=== PATIENT | female | born 1990 | race Caucasian/White ===

== ENCOUNTER 2016-05-09 05:47 | Emergency (ER) | payer OTHER ==
[~2016-05-09] VITALS: Ht 154.9 cm; Wt 107.0 kg
[~2016-05-09 05:47] MED LIST: ABILIFY15 MG PO; ADVAIR 100/501 DISK IH; ADVAIR 500/501 DISK IH; ALAVERT10 MG PO; ALBUTEROL SULF8.5 GM IH; AMLODIPINE BESYL5 MG PO; ANTIVERT25 MG PO; AVIANE1 EACH PO; AZITHROMYCIN250 MG PO; BENTYL10 MG PO; BENZONATATE100 MG PO; CARVEDILOL3.125 MG PO; CATAPRES0.1 MG PO; CEFDINIR300 MG PO; CHLORTHALIDONE25 MG PO; CIPRO500 MG PO; COREG12.5 M1 PO; COREG25 M1 PO; COREG3.125 M1 PO; COREG6.25 M1 PO; DEPAKOTE250 MG PO; DUONEB 2.5-0.5 M3 ML AEROSOL; FANAPT6 MG PO; GABAPENTIN100 MG PO; GABAPENTIN300 MG PO; GLUCOPHAGE500 MG PO; HYDROCHLOROTHIA25 MG PO; HYDROCODON-ACE1 EAC7 PO; KEFLEX500 MG PO; LIDOCAINE HCL35 GM TP; LISINOPRIL-HCT1 EAC3 PO; LISINOPRIL40 MG PO; LO-DOSE ASPIRIN81 M2 PO; MECLIZINE HCL25 MG PO; MELATIN3 MG PO; MELATONIN10 M4 SL; METFORMIN HCL500 MG PO; MOBIC15 MG PO; MONTELUKAST SOD10 MG PO; MORPHINE SULFAT15 M1 PO; NAPROSYN375 MG PO; NAPROSYN500 MG PO; NITROSTAT0.4 MG SL; NORA-BE0.35 MG PO; OXYCODONE HCL10 MG PO; PEPCID40 MG PO; PERCOCET 5/31 TABLET PO; PERIDEX1 ML MM; PRAVASTATIN SOD40 MG PO; PREDNISONE50 MG PO; PRILOSEC OTC20 MG PO; PRINIVIL10 MG PO; PROMETHAZINE HC25 M1 PO; PROVENTIL17 GM IH; PROVENTIL2.5 MG/3 M IH; PULMICORT IH; PYRIDIUM200 MG PO; SAPHRIS5 MG SL; SERTRALINE HCL100 MG PO; SERTRALINE HCL50 MG PO; SINGULAIR10 MG PO; TEMAZEPAM15 MG PO; TOPAMAX100 MG PO; TOPIRAMATE100 MG PO; ULTRAM50 MG PO; VALIUM5 MG PO; VENTOLIN HFA18 GM IH; VENTOLIN17 GM IH; VICODIN,LORT1 TABLET PO; VISTARIL25 M1 PO; VOLTAREN 1% GE100 GM TP; XANAX0.5 MG PO; XANAX1 MG PO; ZESTORETIC 20-1 EAC1 PO; ZOFRAN ODT4 MG PO; ZOFRAN4 MG PO; ZOLOFT100 MG PO
[2016-05-09 06:15] LABS: HEMATOCRIT 44.6 % (36.0-46.0); MCH 29.4 PG (29.0-34.0); MCHC 33.2 G/DL (30.0-36.0); MCV 88.7 FL (83-99); MEAN PLAT.VOLUME 9.8 uM^3 (9.5-12.4); PLATELET COUNT 320 K/uL (156-360); RBC DIS.WIDTH-CV 12.4 % (11.8-14.6); RBC DIS.WIDTH-SD 39.4 % (39-53); RED BLOOD COUNT 5.03 M/uL (3.80-5.20); WHITE BLOOD COUNT 13.3 K/uL (4.1-10.2)
[2016-05-09 06:26] LABS: CHLORIDE 98 mEq/L (99-109); POTASSIUM 3.7 mEq/L (3.7-5.4); SODIUM 135 mEq/L (136-147)
[2016-05-09 06:28] LABS: GLUCOSE 303 mg/dL (70-99)
[2016-05-09 06:29] LABS: ANION GAP 13 MEQ/L (2-14)
[2016-05-09 06:30] LABS: TOTAL BILIRUBIN 0.4 mg/dL (0.0-1.0)
[2016-05-09 06:31] LABS: ALKALINE PHOSPHATASE 112 IU/L (3-129)
[2016-05-09 06:32] LABS: GFR ESTIMATE (CALCULATED) > 59 mL/min/
[2016-05-09 06:33] LABS: UREA NITROGEN (BUN) 11 mg/dL (9-23)
[2016-05-09 06:41] LABS: QUANTITATIVE HCG < 4.0 MIU/ML
[2016-05-09 08:07] LABS: EOSINOPHIL (%) 1.3 % (0-5); EOSINOPHIL COUNT 0.2 K/uL (0-0.3); IMMATURE GRANULOCYTE (%) 1.2 % (0.0-0.7); IMMATURE GRANULOCYTE COUNT 0.2 K/uL; LYMPHOCYTE COUNT 2.9 K/uL (1.0-2.8); MONOCYTE (%) 4.7 % (3-12); MONOCYTE COUNT 0.6 K/uL (0-0.8); NEUTROPHIL COUNT 9.5 K/uL (1.8-6.4)
[2016-05-09 08:37] LABS: ADD MIUA? YES; BILIRUBIN NEGATIVE; BLOOD MODERATE; COLOR YELLOW ((YELLOW)); GLUCOSE (STRIP) NEGATIVE; KETONES NEGATIVE; LEUKOCYTES NEGATIVE; NITRITE NEGATIVE; PROTEIN (STRIP) 30; SPECIFIC GRAVITY 1.042 (1.000-1.030); UROBILINOGEN 0.2 MG/DL (0.2-1.0)
[2016-05-09 08:53] LABS: EPITHELIAL CELLS 2+
[2016-05-09 08:54] LABS: BACTERIA 1+
[2016-05-09 08:55] LABS: AMORPHOUS URATES CRYSTALS 1+; CASTS NONE SEEN /LPF; CRYSTALS PRESENT; MUCUS NONE SEEN; UCUL ADDED? NO; WHITE BLOOD CELLS RARE /HPF (0-5)
[2016-05-09] MEDS ORDERED: ZOFRAN ODT8 MG PO (12:59)
[2016-05-09] MEDS ORDERED: PERCOCET 5/31 TABLET PO (12:59)
[2016-05-09 13:19] VITALS: BP 155/104
== END 2016-05-09 13:10 | disposition home or self-care (01) ==
LOC: EME 05:47
DX: R10.31 Right lower quadrant pain (principal); E11.9 Type 2 diabetes mellitus without complications; I10 Essential (primary) hypertension; F17.200 Nicotine dependence, unspecified, uncomplicated; Z88.6 Allergy status to analgesic agent; Z88.0 Allergy status to penicillin
CPT/HCPCS: 74177; 76856; 80053; 81003; 84702; 85025; 85027; 99281; 99285; J0780; J1170; J1885; J2405; J7030

== ENCOUNTER 2016-05-14 20:32 | Observation (INO) | payer OTHER ==
[~2016-05-14] VITALS: Ht 154.9 cm; Wt 108.5 kg
[~2016-05-14 20:32] MED LIST changes: +ZOFRAN ODT8 MG PO
[2016-05-14 21:36] LABS: CHLORIDE 101 mEq/L (99-109); SODIUM 136 mEq/L (136-147)
[2016-05-14 21:38] LABS: GLUCOSE 252 mg/dL (70-99)
[2016-05-14 21:39] LABS: ANION GAP 14 MEQ/L (2-14)
[2016-05-14 21:42] LABS: GFR ESTIMATE (CALCULATED) > 59 mL/min/
[2016-05-14 21:43] LABS: UREA NITROGEN (BUN) 6 mg/dL (9-23)
[2016-05-14 21:46] LABS: HEMATOCRIT 43.2 % (36.0-46.0); MCH 29.2 PG (29.0-34.0); MCHC 32.6 G/DL (30.0-36.0); MCV 89.4 FL (83-99); MEAN PLAT.VOLUME 10.3 uM^3 (9.5-12.4); PLATELET COUNT 319 K/uL (156-360); RBC DIS.WIDTH-CV 12.4 % (11.8-14.6); RBC DIS.WIDTH-SD 39.7 % (39-53); RED BLOOD COUNT 4.83 M/uL (3.80-5.20); WHITE BLOOD COUNT 13.4 K/uL (4.1-10.2)
[2016-05-14 21:47] LABS: TROP-I INTERPRETATION NEGATIVE; TROPONIN-I < 0.01 ng/mL (0.0-0.30)
[2016-05-14 23:06] LABS: D-DIMER ELISA 0.57 mg/L FEU (< 0.57)
[2016-05-14 23:34] LABS: TROP-I INTERPRETATION NEGATIVE; TROPONIN-I < 0.01 ng/mL (0.0-0.30)
[2016-05-15] MEDS ORDERED: ATORVASTATIN CA20 MG PO (00:32)
[2016-05-15 08:10] LABS: TROP-I INTERPRETATION NEGATIVE; TROPONIN-I < 0.01 ng/mL (0.0-0.30)
[2016-05-15 09:04] LABS: INTERNAL CONTROL VALID? YES
[2016-05-15 09:30] LABS: POINT-OF-CARE USER ID AHSDISBJH
[2016-05-15 13:01] VITALS: BP 95/53
== END 2016-05-15 15:32 | disposition home or self-care (01) ==
LOC: EME 20:32 → EDOF 05-15 01:47
PROVIDERS: Hospitalist; Internal Medicine; Physician Assistant Medical
DX: R07.89 Other chest pain (principal); I10 Essential (primary) hypertension; E11.65 Type 2 diabetes mellitus with hyperglycemia; E66.01 Morbid (severe) obesity due to excess calories; Z68.42 Body mass index [BMI] 45.0-49.9, adult; K76.0 Fatty (change of) liver, not elsewhere classified; E28.2 Polycystic ovarian syndrome; F31.9 Bipolar disorder, unspecified; R91.1 Solitary pulmonary nodule; G89.4 Chronic pain syndrome; R05 Cough; J45.909 Unspecified asthma, uncomplicated; F11.20 Opioid dependence, uncomplicated; F17.210 Nicotine dependence, cigarettes, uncomplicated; Z82.49 Family history of ischemic heart disease and other diseases of the circulatory system; Z83.3 Family history of diabetes mellitus; Z83.49 Family history of other endocrine, nutritional and metabolic diseases; Z88.0 Allergy status to penicillin; Z88.8 Allergy status to other drugs, medicaments and biological substances
CPT/HCPCS: 70450; 71020; 71275; 80048; 82948; 84484; 85027; 85379; 87040; 87449; 93005; 94640; 99202; 99281; 99285; G0378; J1644; J1815; J1956; J2270; J7030

== ENCOUNTER 2016-05-22 21:19 | Inpatient (IN) | payer OTHER ==
[~2016-05-22] VITALS: Ht 154.9 cm; Wt 109.2 kg
[~2016-05-22 21:19] MED LIST changes: +ATORVASTATIN CA20 MG PO
[2016-05-22 22:25] LABS: HEMATOCRIT 41.3 % (36.0-46.0); MCH 29.5 PG (29.0-34.0); MCHC 33.2 G/DL (30.0-36.0); MCV 88.8 FL (83-99); MEAN PLAT.VOLUME 9.7 uM^3 (9.5-12.4); PLATELET COUNT 340 K/uL (156-360); RBC DIS.WIDTH-CV 12.6 % (11.8-14.6); RED BLOOD COUNT 4.65 M/uL (3.80-5.20); WHITE BLOOD COUNT 14.7 K/uL (4.1-10.2)
[2016-05-22 22:38] LABS: CHLORIDE 96 mEq/L (99-109); SODIUM 134 mEq/L (136-147)
[2016-05-22 22:40] LABS: GLUCOSE 207 mg/dL (70-99)
[2016-05-22 22:42] LABS: ANION GAP 14 MEQ/L (2-14); TOTAL BILIRUBIN 0.3 mg/dL (0.0-1.0)
[2016-05-22 22:44] LABS: ALKALINE PHOSPHATASE 88 IU/L (3-129); GFR ESTIMATE (CALCULATED) > 59 mL/min/
[2016-05-22 22:45] LABS: TROP-I INTERPRETATION NEGATIVE; TROPONIN-I < 0.01 ng/mL (0.0-0.30); UREA NITROGEN (BUN) 10 mg/dL (9-23)
[2016-05-23] VITALS (9 sets, daily range): BP systolic 90–137; BP diastolic 46–78
[2016-05-23] MEDS ORDERED: XANAX0.5 MG PO (00:07)
[2016-05-23] MEDS ORDERED: ABILIFY5 MG PO (00:08)
[2016-05-23] MEDS ORDERED: METFORMIN HCL1000 MG PO (00:08)
[2016-05-23] MEDS ORDERED: METHYLPREDNISOLO4 MG PO ×2 (00:09→00:10)
[2016-05-23] MEDS ORDERED: BENZONATATE200 MG PO (00:09)
[2016-05-23] MEDS ORDERED: MEDROL4 MG PO (00:09)
[2016-05-23] MEDS ORDERED: LEVAQUIN500 MG PO (00:09)
[2016-05-23 07:30] LABS: POINT-OF-CARE METER ID UU14100415
[2016-05-23 12:15] LABS: POINT-OF-CARE METER ID UU14100415
[2016-05-24 04:08] VITALS: BP 109/51
[2016-05-24 08:10] VITALS: BP 105/55
[2016-05-24 16:15] VITALS: BP 111/54
[2016-05-24 18:55] VITALS: BP 126/60
[2016-05-25 00:10] VITALS: BP 111/57
[2016-05-25 03:30] VITALS: BP 110/63
[2016-05-25 07:25] LABS: ALKALINE PHOSPHATASE 77 IU/L (3-129); ANION GAP 13 MEQ/L (2-14); CHLORIDE 96 MEQ/L (99-109); GFR ESTIMATE (CALCULATED) > 59 mL/min/; POTASSIUM 4.3 MEQ/L (3.7-5.4); SAMPLE HEMOLYSIS CHECK 0; SAMPLE ICTERIC CHECK 0; SAMPLE LIPEMIA CHECK 0; SODIUM 134 MEQ/L (136-147); TOTAL BILIRUBIN 0.3 MG/DL (0.0-1.0); UREA NITROGEN (BUN) 16 mg/dL (9-23)
[2016-05-25 07:32] LABS: EOSINOPHIL (%) 0 % (0-5); GLUCOSE 335 mg/dL (70-99); HEMATOCRIT 38.5 % (36.0-46.0); IMMATURE GRANULOCYTE (%) 1.1 % (0.0-0.7); IMMATURE GRANULOCYTE COUNT 0.2 K/uL; LYMPHOCYTE COUNT 1.4 K/uL (1.0-2.8); MCH 29.8 PG (29.0-34.0); MCHC 32.5 G/DL (30.0-36.0); MCV 91.7 FL (83-99); MEAN PLAT.VOLUME 10.7 uM^3 (9.5-12.4); MONOCYTE COUNT 0.7 K/uL (0-0.8); NEUTROPHIL (%) 86.5 % (45-76); NEUTROPHIL COUNT 14.7 K/uL (1.8-6.4); PLATELET COUNT 317 K/uL (156-360); RBC DIS.WIDTH-CV 13.3 % (11.8-14.6); RBC DIS.WIDTH-SD 44.1 % (39-53)
[2016-05-25 08:00] VITALS: BP 130/74
[2016-05-25 16:04] VITALS: BP 130/78
[2016-05-26] VITALS: BP 128/80; BP 129/60
[2016-05-26 07:15] VITALS: BP 122/86
[2016-05-26] MEDS ORDERED: CEFDINIR300 MG PO (08:04)
[2016-05-26] MEDS ORDERED: FLOVENT DISKUS1 DIS2 IH (08:04)
== END 2016-05-26 09:47 | disposition home or self-care (01) | DRG 202 ==
LOC: EME 21:19 → EDOF 05-23 02:58 → 2EAST 05-23 02:58
PROVIDERS: Hospitalist; Internal Medicine; Nurse Practitioner Family; Student in an Organized Health Care Education/Training Program
DX: J45.901 Unspecified asthma with (acute) exacerbation (principal); J20.9 Acute bronchitis, unspecified; J96.01 Acute respiratory failure with hypoxia; E66.01 Morbid (severe) obesity due to excess calories; Z68.42 Body mass index [BMI] 45.0-49.9, adult; F31.9 Bipolar disorder, unspecified; F41.9 Anxiety disorder, unspecified; K76.0 Fatty (change of) liver, not elsewhere classified; E11.9 Type 2 diabetes mellitus without complications; I42.2 Other hypertrophic cardiomyopathy; G89.29 Other chronic pain; F11.20 Opioid dependence, uncomplicated; R91.1 Solitary pulmonary nodule; Q61.3 Polycystic kidney, unspecified; E28.2 Polycystic ovarian syndrome; I10 Essential (primary) hypertension
CPT/HCPCS: 71020; 71275; 80053; 82948; 84484; 85025; 85027; 93005; 94010; 94640; 94640 76; 94799; 99202; 99281; 99285; J1644; J1815; J1956; J2930

== ENCOUNTER 2016-05-30 19:57 | Observation (INO) | payer OTHER ==
[~2016-05-30] VITALS: Ht 154.9 cm; Wt 106.8 kg
[~2016-05-30 19:57] MED LIST changes: +ABILIFY5 MG PO; +BENZONATATE200 MG PO; +FLOVENT DISKUS1 DIS2 IH; +LEVAQUIN500 MG PO; +MEDROL4 MG PO; +METFORMIN HCL1000 MG PO; +METHYLPREDNISOLO4 MG PO
[2016-05-30 21:04] LABS: EOSINOPHIL (%) 3.7 % (0-5); EOSINOPHIL COUNT 0.5 K/uL (0-0.3); HEMATOCRIT 38.7 % (36.0-46.0); IMMATURE GRANULOCYTE COUNT 2.4 K/uL; LYMPHOCYTE COUNT 2.4 K/uL (1.0-2.8); MCH 29.6 PG (29.0-34.0); MCHC 33.1 G/DL (30.0-36.0); MCV 89.4 FL (83-99); MEAN PLAT.VOLUME 9.8 uM^3 (9.5-12.4); MONOCYTE (%) 6.2 % (3-12); MONOCYTE COUNT 0.8 K/uL (0-0.8); NEUTROPHIL (%) 68.3 % (45-76); NEUTROPHIL COUNT 8.4 K/uL (1.8-6.4); PLATELET COUNT 246 K/uL (156-360); RBC DIS.WIDTH-CV 12.5 % (11.8-14.6); RBC DIS.WIDTH-SD 40.4 % (39-53); RED BLOOD COUNT 4.33 M/uL (3.80-5.20); WHITE BLOOD COUNT 12.3 K/uL (4.1-10.2)
[2016-05-30 21:11] LABS: CHLORIDE 105 mEq/L (99-109); SODIUM 139 mEq/L (136-147)
[2016-05-30 21:14] LABS: GLUCOSE 214 mg/dL (70-99)
[2016-05-30 21:15] LABS: ANION GAP 11 MEQ/L (2-14)
[2016-05-30 21:16] LABS: TOTAL BILIRUBIN 0.4 mg/dL (0.0-1.0)
[2016-05-30 21:17] LABS: ALKALINE PHOSPHATASE 99 IU/L (3-129); GFR ESTIMATE (CALCULATED) > 59 mL/min/
[2016-05-30 21:18] LABS: UREA NITROGEN (BUN) 7 mg/dL (9-23)
[2016-05-31 02:59] VITALS: BP 119/77
[2016-05-31 07:42] VITALS: BP 118/57
[2016-05-31 08:04] LABS: POINT-OF-CARE METER ID UU13113831
[2016-05-31] MEDS ORDERED: PREDNISONE10 MG PO (10:02)
== END 2016-05-31 11:22 | disposition home or self-care (01) ==
LOC: EME → EDBD 19:57 → EME 19:57 → EDOF 05-31 02:00 → 5WEST 05-31 02:49
PROVIDERS: Emergency Medicine; Hospitalist
DX: J44.1 Chronic obstructive pulmonary disease with (acute) exacerbation (principal); R06.02 Shortness of breath; E11.9 Type 2 diabetes mellitus without complications; E78.5 Hyperlipidemia, unspecified; K76.0 Fatty (change of) liver, not elsewhere classified; I42.2 Other hypertrophic cardiomyopathy; E28.2 Polycystic ovarian syndrome; Z88.0 Allergy status to penicillin; E66.01 Morbid (severe) obesity due to excess calories; Z68.41 Body mass index [BMI] 40.0-44.9, adult
CPT/HCPCS: 71020; 80053; 82948; 85025; 93005; 94640; 94640 76; 99202; 99281; 99285; G0378; J1100; J1644; J2930; J3475; J7512; J7644

== ENCOUNTER 2016-06-11 16:51 | Observation (INO) | payer OTHER ==
[~2016-06-11] VITALS: Ht 154.9 cm; Wt 107.5 kg
[~2016-06-11 16:51] MED LIST changes: +PREDNISONE10 MG PO
[2016-06-11 17:34] LABS: HEMATOCRIT 40.6 % (36.0-46.0); MCH 29.4 PG (29.0-34.0); MEAN PLAT.VOLUME 9.8 uM^3 (9.5-12.4); PLATELET COUNT 229 K/uL (156-360); RBC DIS.WIDTH-CV 12.8 % (11.8-14.6); RBC DIS.WIDTH-SD 40.9 % (39-53); RED BLOOD COUNT 4.56 M/uL (3.80-5.20); WHITE BLOOD COUNT 13.6 K/uL (4.1-10.2)
[2016-06-11 17:46] LABS: GLUCOSE 171 mg/dL (70-99)
[2016-06-11 17:47] LABS: ANION GAP 11 MEQ/L (2-14)
[2016-06-11 17:48] LABS: TOTAL BILIRUBIN 0.7 mg/dL (0.0-1.0)
[2016-06-11 17:50] LABS: ALKALINE PHOSPHATASE 78 IU/L (3-129); GFR ESTIMATE (CALCULATED) > 59 mL/min/
[2016-06-11 17:51] LABS: UREA NITROGEN (BUN) 7 mg/dL (9-23)
[2016-06-11 18:01] LABS: AMYLASE 48 IU/L (1-118); QUANTITATIVE HCG < 4.0 MIU/ML
[2016-06-11 18:09] LABS: LIPASE 186 U/L (1.0-51.0)
[2016-06-11 18:46] LABS: CHLORIDE 101 mEq/L (99-109); POTASSIUM 4.1 mEq/L (3.7-5.4); SODIUM 138 mEq/L (136-147)
[2016-06-11 19:12] LABS: ADD MIUA? NO; BILIRUBIN NEGATIVE; BLOOD NEGATIVE; COLOR YELLOW ((YELLOW)); GLUCOSE (STRIP) NEGATIVE; KETONES NEGATIVE; LEUKOCYTES NEGATIVE; NITRITE NEGATIVE; PROTEIN (STRIP) NEGATIVE; SPECIFIC GRAVITY 1.032 (1.000-1.030); UCUL ADDED? NO; UROBILINOGEN 0.2 MG/DL (0.2-1.0)
[2016-06-11] MEDS ORDERED: LORATADINE10 M2 PO (21:12)
[2016-06-11] MEDS ORDERED: NORVASC10 MG PO (21:14)
[2016-06-12 00:19] VITALS: BP 121/53
[2016-06-12 04:10] VITALS: BP 102/50
[2016-06-12 06:08] LABS: POINT-OF-CARE METER ID UU13113700
[2016-06-12 07:18] LABS: EOSINOPHIL (%) 4.1 % (0-5); EOSINOPHIL COUNT 0.4 K/uL (0-0.3); HEMATOCRIT 35.7 % (36.0-46.0); IMMATURE GRANULOCYTE COUNT 0.1 K/uL; LYMPHOCYTE COUNT 2.7 K/uL (1.0-2.8); MCH 29.2 PG (29.0-34.0); MCHC 31.4 G/DL (30.0-36.0); MONOCYTE (%) 5.8 % (3-12); MONOCYTE COUNT 0.5 K/uL (0-0.8); NEUTROPHIL (%) 57.7 % (45-76); RBC DIS.WIDTH-CV 13.4 % (11.8-14.6); RBC DIS.WIDTH-SD 45.1 % (39-53); RED BLOOD COUNT 3.84 M/uL (3.80-5.20)
[2016-06-12 07:20] LABS: WHITE BLOOD COUNT 8.7 K/uL (4.1-10.2)
[2016-06-12 07:32] LABS: ALKALINE PHOSPHATASE 46 IU/L (3-129); ANION GAP 10 MEQ/L (2-14); CHLORIDE 102 MEQ/L (99-109); GFR ESTIMATE (CALCULATED) > 59 mL/min/; POTASSIUM 3.8 MEQ/L (3.7-5.4); SAMPLE HEMOLYSIS CHECK 0; SAMPLE ICTERIC CHECK 0; SAMPLE LIPEMIA CHECK 0; SODIUM 137 MEQ/L (136-147); TOTAL BILIRUBIN 0.7 MG/DL (0.0-1.0); UREA NITROGEN (BUN) 5 mg/dL (9-23)
[2016-06-12 07:34] LABS: GLUCOSE 112 mg/dL (70-99)
[2016-06-12 07:43] VITALS: BP 109/60
[2016-06-12 08:09] LABS: MEAN PLAT.VOLUME 10.8 uM^3 (9.5-12.4); PLAT.SUFFICIENCY ADEQUATE; USER ID STC
[2016-06-12 08:15] LABS: PLATELET COUNT 160 K/uL (156-360)
[2016-06-12 12:10] VITALS: BP 92/47
[2016-06-12 12:18] LABS: POINT-OF-CARE METER ID UU13113700
[2016-06-12 13:25] VITALS: BP 104/51
[2016-06-15] MEDS ORDERED: XANAX1 MG PO (11:11)
== END 2016-06-12 16:30 | disposition home or self-care (01) ==
LOC: EME 16:51 → 5WEST 22:01 → EDOF 22:01 → 5WEST 23:58
PROVIDERS: Hospitalist
DX: K85.90 Acute pancreatitis without necrosis or infection, unspecified (principal); E66.01 Morbid (severe) obesity due to excess calories; Z68.41 Body mass index [BMI] 40.0-44.9, adult; Z87.11 Personal history of peptic ulcer disease; K76.0 Fatty (change of) liver, not elsewhere classified; E28.2 Polycystic ovarian syndrome; E11.9 Type 2 diabetes mellitus without complications; D72.829 Elevated white blood cell count, unspecified; F31.9 Bipolar disorder, unspecified; R91.1 Solitary pulmonary nodule; G89.4 Chronic pain syndrome; F11.20 Opioid dependence, uncomplicated
CPT/HCPCS: 74177; 80053; 81003; 82150; 82948; 83690; 84702; 85025; 85027; 94640; 99202; 99281; 99285; C9113; G0378; J1170; J1644; J2405; J3010; J7030; J7120

== ENCOUNTER 2016-06-14 09:18 | Emergency (ER) | payer OTHER ==
[~2016-06-14] VITALS: Ht 154.9 cm; Wt 107.4 kg
[~2016-06-14 09:18] MED LIST changes: +LORATADINE10 M2 PO; +NORVASC10 MG PO
[2016-06-14 10:06] LABS: BILIRUBIN NEGATIVE; BLOOD NEGATIVE; COLOR YELLOW ((YELLOW)); GLUCOSE (STRIP) 150; KETONES NEGATIVE; LEUKOCYTES NEGATIVE; NITRITE NEGATIVE; PROTEIN (STRIP) NEGATIVE; SPECIFIC GRAVITY 1.011 (1.000-1.030); UROBILINOGEN 0.2 MG/DL (0.2-1.0)
[2016-06-14 10:09] LABS: HEMATOCRIT 38.7 % (36.0-46.0); MCH 29.8 PG (29.0-34.0); MCHC 32.6 G/DL (30.0-36.0); MCV 91.5 FL (83-99); RBC DIS.WIDTH-CV 12.5 % (11.8-14.6); RBC DIS.WIDTH-SD 41.2 % (39-53); RED BLOOD COUNT 4.23 M/uL (3.80-5.20); WHITE BLOOD COUNT 11.2 K/uL (4.1-10.2)
[2016-06-14 10:13] LABS: MEAN PLAT.VOLUME 10.2 uM^3 (9.5-12.4)
[2016-06-14 10:17] LABS: CHLORIDE 103 mEq/L (99-109); POTASSIUM 4.3 mEq/L (3.7-5.4); SODIUM 137 mEq/L (136-147)
[2016-06-14 10:17] LABS: ADD MIUA? NO; UCUL ADDED? NO
[2016-06-14 10:20] LABS: GLUCOSE 321 mg/dL (70-99)
[2016-06-14 10:21] LABS: ANION GAP 12 MEQ/L (2-14)
[2016-06-14 10:23] LABS: ALKALINE PHOSPHATASE 86 IU/L (3-129); GFR ESTIMATE (CALCULATED) > 59 mL/min/
[2016-06-14 10:24] LABS: UREA NITROGEN (BUN) 4 mg/dL (9-23)
[2016-06-14 10:25] LABS: DIRECT BILIRUBIN 0.1 mg/dL (0.0-0.3)
[2016-06-14 10:27] LABS: LIPASE 26 U/L (1.0-51.0)
[2016-06-14 10:33] LABS: TOTAL BILIRUBIN 0.3 mg/dL (0.0-1.0)
[2016-06-14 10:37] LABS: PLATELET COUNT 248 K/uL (156-360)
[2016-06-14] MEDS ORDERED: ZOFRAN4 MG PO (10:58)
[2016-06-14 11:35] VITALS: BP 106/49
[2016-06-15] MEDS ORDERED: XANAX1 MG PO (11:11)
== END 2016-06-14 11:36 | disposition home or self-care (01) ==
LOC: EME 09:18
PROVIDERS: Emergency Medicine
DX: K29.00 Acute gastritis without bleeding (principal); K86.1 Other chronic pancreatitis; J45.909 Unspecified asthma, uncomplicated; G89.29 Other chronic pain; E11.9 Type 2 diabetes mellitus without complications; I10 Essential (primary) hypertension; K21.9 Gastro-esophageal reflux disease without esophagitis; Z87.891 Personal history of nicotine dependence
CPT/HCPCS: 80048; 80076; 81003; 83690; 85027; 99281; 99285; J2270; J2405; J7030

== ENCOUNTER 2016-07-11 20:12 | Observation (INO) | payer OTHER ==
[~2016-07-11] VITALS: Ht 154.9 cm; Wt 106.9 kg
[2016-07-11] MEDS ORDERED: TRULICITY0.75 MG/0. SC (21:24)
[2016-07-12 01:11] VITALS: BP 137/75
[2016-07-12 03:54] VITALS: BP 116/64
[2016-07-12 07:41] LABS: POINT-OF-CARE METER ID UU14162513
[2016-07-12 08:35] VITALS: BP 118/69
[2016-07-12] MEDS ORDERED: PREDNISONE10 MG PO (12:14)
[2016-07-12 12:52] LABS: POINT-OF-CARE METER ID UU14162513; POINT-OF-CARE USER ID PUTHJD81
== END 2016-07-12 16:40 | disposition home or self-care (01) ==
LOC: EME 20:12 → EDOF 23:54 → 5WEST 07-12 00:56
PROVIDERS: Hospitalist
DX: J45.901 Unspecified asthma with (acute) exacerbation (principal); E66.2 Morbid (severe) obesity with alveolar hypoventilation; Z68.41 Body mass index [BMI] 40.0-44.9, adult; F41.0 Panic disorder [episodic paroxysmal anxiety]; I10 Essential (primary) hypertension; E11.9 Type 2 diabetes mellitus without complications; K76.0 Fatty (change of) liver, not elsewhere classified; E28.2 Polycystic ovarian syndrome; F25.9 Schizoaffective disorder, unspecified; F32.9 Major depressive disorder, single episode, unspecified; Z87.891 Personal history of nicotine dependence
CPT/HCPCS: 82948; 93005; 94640; 94640 76; 94644; 94760; 94799; 99202; 99281; 99285; G0378; J2930; J7509

== ENCOUNTER 2016-07-28 17:31 | Emergency (ER) | payer OTHER ==
[~2016-07-28] VITALS: Ht 154.9 cm; Wt 106.0 kg
[~2016-07-28 17:31] MED LIST changes: +TRULICITY0.75 MG/0. SC
[2016-07-28 18:05] LABS: HEMATOCRIT 42.9 % (36.0-46.0); MCH 29.1 PG (29.0-34.0); MCHC 32.4 G/DL (30.0-36.0); MCV 89.9 FL (83-99); MEAN PLAT.VOLUME 9.5 uM^3 (9.5-12.4); PLATELET COUNT 367 K/uL (156-360); RBC DIS.WIDTH-CV 12.6 % (11.8-14.6); RBC DIS.WIDTH-SD 41.8 % (39-53); RED BLOOD COUNT 4.77 M/uL (3.80-5.20); WHITE BLOOD COUNT 12.1 K/uL (4.1-10.2)
[2016-07-28 18:13] LABS: CHLORIDE 102 mEq/L (99-109); POTASSIUM 3.8 mEq/L (3.7-5.4); SODIUM 138 mEq/L (136-147)
[2016-07-28 18:16] LABS: GLUCOSE 134 mg/dL (70-99)
[2016-07-28 18:17] LABS: ANION GAP 15 MEQ/L (2-14)
[2016-07-28 18:18] LABS: TOTAL BILIRUBIN 0.3 mg/dL (0.0-1.0)
[2016-07-28 18:19] LABS: ALKALINE PHOSPHATASE 89 IU/L (3-129); GFR ESTIMATE (CALCULATED) > 59 mL/min/
[2016-07-28 18:20] LABS: UREA NITROGEN (BUN) 6 mg/dL (9-23)
[2016-07-28 18:23] LABS: LIPASE 15 U/L (1.0-51.0)
[2016-07-28 18:27] LABS: ADD MIUA? NO; BILIRUBIN NEGATIVE; BLOOD NEGATIVE; COLOR STRAW ((YELLOW)); GLUCOSE (STRIP) NEGATIVE; KETONES NEGATIVE; LEUKOCYTES NEGATIVE; NITRITE NEGATIVE; PROTEIN (STRIP) NEGATIVE; SPECIFIC GRAVITY 1.008 (1.000-1.030); UCUL ADDED? NO; UROBILINOGEN 0.2 MG/DL (0.2-1.0)
[2016-07-28 18:28] LABS: QUANTITATIVE HCG < 4.0 MIU/ML
[2016-07-28] MEDS ORDERED: ZOFRAN ODT4 MG PO (19:29)
[2016-07-28] MEDS ORDERED: BENTYL10 MG PO (19:29)
[2016-07-28 19:53] VITALS: BP 146/91
== END 2016-07-28 19:57 | disposition home or self-care (01) ==
LOC: EME 17:31
DX: R10.11 Right upper quadrant pain (principal); R11.2 Nausea with vomiting, unspecified; E11.9 Type 2 diabetes mellitus without complications; I10 Essential (primary) hypertension; K21.9 Gastro-esophageal reflux disease without esophagitis; G89.29 Other chronic pain; Z88.0 Allergy status to penicillin; Z88.6 Allergy status to analgesic agent
CPT/HCPCS: 74177; 80053; 81003; 83690; 84702; 85027; 99281; 99285; J1885; J2405; J7030

== ENCOUNTER 2016-09-18 22:17 | Emergency (ER) | payer OTHER ==
[~2016-09-18] VITALS: Ht 154.9 cm; Wt 103.8 kg
[2016-09-18 23:22] LABS: HEMATOCRIT 44.1 % (36.0-46.0); MCH 29.7 PG (29.0-34.0); MCHC 32.7 G/DL (30.0-36.0); MCV 90.9 FL (83-99); MEAN PLAT.VOLUME 9.8 uM^3 (9.5-12.4); PLATELET COUNT 335 K/uL (156-360); RBC DIS.WIDTH-CV 12.1 % (11.8-14.6); RBC DIS.WIDTH-SD 40.5 % (39-53); RED BLOOD COUNT 4.85 M/uL (3.80-5.20); WHITE BLOOD COUNT 11.4 K/uL (4.1-10.2)
[2016-09-18 23:34] LABS: CHLORIDE 103 mEq/L (99-109); POTASSIUM 4.3 mEq/L (3.7-5.4); SODIUM 140 mEq/L (136-147)
[2016-09-18 23:37] LABS: GLUCOSE 96 mg/dL (70-99)
[2016-09-18 23:38] LABS: ANION GAP 13 MEQ/L (2-14)
[2016-09-18 23:39] LABS: TOTAL BILIRUBIN 0.3 mg/dL (0.0-1.0)
[2016-09-18 23:40] LABS: ALKALINE PHOSPHATASE 88 IU/L (3-129); GFR ESTIMATE (CALCULATED) > 59 mL/min/
[2016-09-18 23:41] LABS: UREA NITROGEN (BUN) 6 mg/dL (9-23)
[2016-09-18 23:50] LABS: QUANTITATIVE HCG < 4.0 MIU/ML
[2016-09-19 01:22] LABS: ADD MIUA? YES; BILIRUBIN NEGATIVE; BLOOD SMALL; COLOR YELLOW ((YELLOW)); GLUCOSE (STRIP) NEGATIVE; KETONES NEGATIVE; LEUKOCYTES NEGATIVE; NITRITE NEGATIVE; PROTEIN (STRIP) NEGATIVE; UROBILINOGEN 0.2 MG/DL (0.2-1.0)
[2016-09-19 01:41] LABS: BACTERIA NONE SEEN /HPF; EPITHELIAL CELLS NONE SEEN /HPF; MUCUS NONE SEEN /LPF; RED BLOOD CELLS 0-5 /HPF (0-5); UCUL ADDED? NO; WHITE BLOOD CELLS 0-5 /HPF (0-5)
[2016-09-19] MEDS ORDERED: ZOFRAN ODT4 MG PO (01:45)
[2016-09-19] MEDS ORDERED: BENTYL10 MG PO (01:45)
[2016-09-19 02:02] VITALS: BP 130/79
== END 2016-09-19 02:17 | disposition home or self-care (01) ==
LOC: EXP 22:17 → EME 22:17 → EXP 09-19 02:17
DX: R10.12 Left upper quadrant pain (principal); R10.13 Epigastric pain; G89.29 Other chronic pain; Z79.891 Long term (current) use of opiate analgesic; Z90.49 Acquired absence of other specified parts of digestive tract; I10 Essential (primary) hypertension; E11.9 Type 2 diabetes mellitus without complications; Z79.84 Long term (current) use of oral hypoglycemic drugs; J45.909 Unspecified asthma, uncomplicated; Z87.891 Personal history of nicotine dependence
CPT/HCPCS: 74177; 80053; 81003; 84702; 85027; 99281; 99285; J2270; J2405; J7030

== ENCOUNTER 2016-09-28 18:53 | Inpatient (IN) | payer OTHER ==
[~2016-09-28] VITALS: Ht 154.9 cm; Wt 104.2 kg
[2016-09-28 19:38] LABS: HEMATOCRIT 43.2 % (36.0-46.0); MCH 29.5 PG (29.0-34.0); MCHC 33.3 G/DL (30.0-36.0); MCV 88.5 FL (83-99); MEAN PLAT.VOLUME 10.7 uM^3 (9.5-12.4); PLATELET COUNT 273 K/uL (156-360); RBC DIS.WIDTH-CV 12.2 % (11.8-14.6); RBC DIS.WIDTH-SD 40.1 % (39-53); RED BLOOD COUNT 4.88 M/uL (3.80-5.20); WHITE BLOOD COUNT 14.3 K/uL (4.1-10.2)
[2016-09-28 19:43] LABS: POTASSIUM ND MEQ/L (3.7-5.4)
[2016-09-28 19:52] LABS: GLUCOSE 139 mg/dL (70-99)
[2016-09-28 19:53] LABS: CHLORIDE 98 MEQ/L (99-109); SODIUM 133 MEQ/L (136-147); TOTAL BILIRUBIN 0.4 mg/dL (0.0-1.0)
[2016-09-28 19:55] LABS: ALKALINE PHOSPHATASE 91 IU/L (3-129); GFR ESTIMATE (CALCULATED) > 59 mL/min/
[2016-09-28 19:56] LABS: UREA NITROGEN (BUN) 11 mg/dL (9-23)
[2016-09-28 20:03] LABS: TROP-I INTERPRETATION NEGATIVE; TROPONIN-I < 0.01 ng/mL (0.0-0.30)
[2016-09-28] MEDS ORDERED: XANAX0.5 MG PO (20:59)
[2016-09-28] MEDS ORDERED: LORATADINE10 M2 PO (21:02)
[2016-09-28] MEDS ORDERED: LATUDA20 MG PO (21:02)
[2016-09-28] MEDS ORDERED: GABAPENTIN100 MG PO (21:02)
[2016-09-28 21:35] LABS: ANION GAP 15 MEQ/L (2-14)
[2016-09-28 21:37] LABS: SERUM ETHYL ALCOHOL < 10 mg/dL
[2016-09-28 21:40] LABS: LIPASE 827 U/L (1.0-51.0)
[2016-09-29 00:17] VITALS: BP 138/82
[2016-09-29 05:55] LABS: POINT-OF-CARE METER ID UU14188625
[2016-09-29 07:53] LABS: ALKALINE PHOSPHATASE 76 IU/L (3-129); ANION GAP 10 MEQ/L (2-14); CHLORIDE 102 MEQ/L (99-109); GFR ESTIMATE (CALCULATED) > 59 mL/min/; LIPASE 35 U/L (1.0-51.0); POTASSIUM 4.1 MEQ/L (3.7-5.4); SAMPLE HEMOLYSIS CHECK 0; SAMPLE ICTERIC CHECK 0; SAMPLE LIPEMIA CHECK 0; SODIUM 138 MEQ/L (136-147); TOTAL BILIRUBIN 0.5 MG/DL (0.0-1.0); TRIGLYCERIDES 221 MG/DL (Normal: <150); UREA NITROGEN (BUN) 14 mg/dL (9-23)
[2016-09-29 07:54] LABS: GLUCOSE 93 mg/dL (70-99)
[2016-09-29 08:00] VITALS: BP 101/59
[2016-09-29 11:46] LABS: POINT-OF-CARE METER ID UU14174225
[2016-09-29 15:56] VITALS: BP 110/69
[2016-09-29 21:06] LABS: POINT-OF-CARE METER ID UU14174225
[2016-09-30] VITALS: BP 115/59
[2016-09-30 07:23] VITALS: BP 118/66
[2016-09-30 07:31] LABS: POINT-OF-CARE METER ID UU14188625
== END 2016-09-30 13:55 | disposition home or self-care (01) | DRG 439 ==
LOC: EME 18:53 → EDOF 21:18 → 5SOUTH 21:59
PROVIDERS: Internal Medicine; Physician Assistant; Physician Assistant Medical
DX: K85.30 Drug induced acute pancreatitis without necrosis or infection (principal); T38.3X5A Adverse effect of insulin and oral hypoglycemic [antidiabetic] drugs, initial encounter; K29.70 Gastritis, unspecified, without bleeding; I42.1 Obstructive hypertrophic cardiomyopathy; R74.8 Abnormal levels of other serum enzymes; K70.0 Alcoholic fatty liver; F10.20 Alcohol dependence, uncomplicated; E66.01 Morbid (severe) obesity due to excess calories; Z68.41 Body mass index [BMI] 40.0-44.9, adult; E87.1 Hypo-osmolality and hyponatremia; E11.9 Type 2 diabetes mellitus without complications; I10 Essential (primary) hypertension; J45.909 Unspecified asthma, uncomplicated; K21.9 Gastro-esophageal reflux disease without esophagitis; R00.2 Palpitations; E28.2 Polycystic ovarian syndrome; F25.9 Schizoaffective disorder, unspecified; F31.9 Bipolar disorder, unspecified; Z87.891 Personal history of nicotine dependence; F41.9 Anxiety disorder, unspecified; Z90.49 Acquired absence of other specified parts of digestive tract; Z79.84 Long term (current) use of oral hypoglycemic drugs
CPT/HCPCS: 71020; 74176; 80053; 81003; 82948; 83690; 84478; 84484; 84999; 85027; 93005; 94640; 94640 76; 99202; 99281; 99285; C9113; G0480; J1650; J1815; J1885; J2405; J7120

== ENCOUNTER 2016-10-05 22:14 | Emergency (ER) | payer OTHER ==
[~2016-10-05] VITALS: Ht 154.9 cm; Wt 104.6 kg
[~2016-10-05 22:14] MED LIST changes: +LATUDA20 MG PO
[2016-10-06 00:07] LABS: ADD MIUA? NO; BILIRUBIN NEGATIVE; BLOOD NEGATIVE; COLOR STRAW ((YELLOW)); GLUCOSE (STRIP) NEGATIVE; KETONES NEGATIVE; LEUKOCYTES NEGATIVE; NITRITE NEGATIVE; PROTEIN (STRIP) NEGATIVE; SPECIFIC GRAVITY 1.014 (1.000-1.030); UCUL ADDED? NO; UROBILINOGEN 0.2 MG/DL (0.2-1.0)
[2016-10-06 00:29] LABS: HEMATOCRIT 44.4 % (36.0-46.0); MCH 28.6 PG (29.0-34.0); MCV 89.3 FL (83-99); MEAN PLAT.VOLUME 9.8 uM^3 (9.5-12.4); RBC DIS.WIDTH-CV 12.2 % (11.8-14.6); RBC DIS.WIDTH-SD 40.2 % (39-53); RED BLOOD COUNT 4.97 M/uL (3.80-5.20); WHITE BLOOD COUNT 14.4 K/uL (4.1-10.2)
[2016-10-06 00:30] LABS: PLATELET COUNT 386 K/uL (156-360)
[2016-10-06 00:34] LABS: CHLORIDE 103 mEq/L (99-109); POTASSIUM 4.1 mEq/L (3.7-5.4); SODIUM 137 mEq/L (136-147)
[2016-10-06 00:37] LABS: ANION GAP 11 MEQ/L (2-14)
[2016-10-06 00:38] LABS: TOTAL BILIRUBIN 0.3 mg/dL (0.0-1.0)
[2016-10-06 00:39] LABS: AMYLASE 16 IU/L (1-118)
[2016-10-06 00:41] LABS: GLUCOSE 159 mg/dL (70-99)
[2016-10-06 00:44] LABS: ALKALINE PHOSPHATASE 89 IU/L (3-129); GFR ESTIMATE (CALCULATED) > 59 mL/min/
[2016-10-06 00:45] LABS: UREA NITROGEN (BUN) 9 mg/dL (9-23)
[2016-10-06 00:48] LABS: LIPASE 10 U/L (1.0-51.0)
[2016-10-06 00:49] LABS: QUANTITATIVE HCG < 4.0 MIU/ML
[2016-10-06 01:22] VITALS: BP 114/87
== END 2016-10-06 01:23 | disposition home or self-care (01) ==
LOC: EME 22:14 → EXP 22:14
PROVIDERS: Physician Assistant
DX: R10.12 Left upper quadrant pain (principal); R11.2 Nausea with vomiting, unspecified; K76.0 Fatty (change of) liver, not elsewhere classified; E11.9 Type 2 diabetes mellitus without complications; I10 Essential (primary) hypertension; J45.909 Unspecified asthma, uncomplicated; K21.9 Gastro-esophageal reflux disease without esophagitis; Z87.891 Personal history of nicotine dependence; Z88.0 Allergy status to penicillin; F31.9 Bipolar disorder, unspecified; G43.909 Migraine, unspecified, not intractable, without status migrainosus; Z79.891 Long term (current) use of opiate analgesic; G89.29 Other chronic pain; M25.559 Pain in unspecified hip
CPT/HCPCS: 80053; 81003; 82150; 83690; 84702; 85027; 99281; 99284; J3010

== ENCOUNTER 2016-10-17 06:19 | Emergency (ER) | payer OTHER ==
[~2016-10-17] VITALS: Ht 154.9 cm; Wt 103.5 kg
[2016-10-17 08:51] LABS: EOSINOPHIL (%) 4.4 % (0-5); EOSINOPHIL COUNT 0.5 K/uL (0-0.3); HEMATOCRIT 43.9 % (36.0-46.0); IMMATURE GRANULOCYTE (%) 0.9 % (0.0-0.7); IMMATURE GRANULOCYTE COUNT 0.1 K/uL; INSTRUMENT ABS NEUTROPHIL CT 8.6 K/uL; LYMPHOCYTE COUNT 1.6 K/uL (1.0-2.8); MCH 28.7 PG (29.0-34.0); MCHC 32.1 G/DL (30.0-36.0); MCV 89.2 FL (83-99); MEAN PLAT.VOLUME 9.3 uM^3 (9.5-12.4); MONOCYTE (%) 4.4 % (3-12); MONOCYTE COUNT 0.5 K/uL (0-0.8); NEUTROPHIL (%) 76.2 % (45-76); NEUTROPHIL COUNT 8.6 K/uL (1.8-6.4); PLATELET COUNT 343 K/uL (156-360); RBC DIS.WIDTH-CV 12.5 % (11.8-14.6); RED BLOOD COUNT 4.92 M/uL (3.80-5.20); WHITE BLOOD COUNT 11.3 K/uL (4.1-10.2)
[2016-10-17 09:02] LABS: CHLORIDE 103 mEq/L (99-109); POTASSIUM 3.9 mEq/L (3.7-5.4); SODIUM 140 mEq/L (136-147)
[2016-10-17 09:04] LABS: GLUCOSE 144 mg/dL (70-99)
[2016-10-17 09:06] LABS: ANION GAP 11 MEQ/L (2-14)
[2016-10-17 09:08] LABS: GFR ESTIMATE (CALCULATED) > 59 mL/min/
[2016-10-17 09:09] LABS: UREA NITROGEN (BUN) 7 mg/dL (9-23)
[2016-10-17] MEDS ORDERED: PREDNISONE50 MG PO (11:33)
[2016-10-17 11:50] VITALS: BP 114/69
== END 2016-10-17 11:51 | disposition home or self-care (01) ==
LOC: EME 06:19
PROVIDERS: Emergency Medicine
DX: J45.901 Unspecified asthma with (acute) exacerbation (principal); I10 Essential (primary) hypertension; E11.9 Type 2 diabetes mellitus without complications; Z79.84 Long term (current) use of oral hypoglycemic drugs; F31.9 Bipolar disorder, unspecified; K21.9 Gastro-esophageal reflux disease without esophagitis; Z87.891 Personal history of nicotine dependence; Z88.0 Allergy status to penicillin
CPT/HCPCS: 71020; 80048; 85025; 94640; 94640 76; 99281; 99283; J7512

== ENCOUNTER 2016-10-19 18:48 | Emergency (ER) | payer OTHER ==
[~2016-10-19] VITALS: Ht 162.6 cm; Wt 104.0 kg
[2016-10-19 19:34] LABS: HEMATOCRIT 43.2 % (36.0-46.0); MCHC 32.4 G/DL (30.0-36.0); MCV 89.4 FL (83-99); MEAN PLAT.VOLUME 9.7 uM^3 (9.5-12.4); NRBC (%) 0.2 /100 WBC (0-0); PLATELET COUNT 375 K/uL (156-360); RBC DIS.WIDTH-CV 12.3 % (11.8-14.6); RBC DIS.WIDTH-SD 40.6 % (39-53); RED BLOOD COUNT 4.83 M/uL (3.80-5.20); WHITE BLOOD COUNT 12.8 K/uL (4.1-10.2)
[2016-10-19 19:44] LABS: ADD MIUA? NO; BILIRUBIN NEGATIVE; BLOOD NEGATIVE; COLOR STRAW ((YELLOW)); GLUCOSE (STRIP) >=500; KETONES NEGATIVE; LEUKOCYTES NEGATIVE; NITRITE NEGATIVE; PROTEIN (STRIP) NEGATIVE; SPECIFIC GRAVITY 1.014 (1.000-1.030); UCUL ADDED? NO; UROBILINOGEN 0.2 MG/DL (0.2-1.0)
[2016-10-19 19:52] LABS: CHLORIDE 102 mEq/L (99-109); POTASSIUM 3.9 mEq/L (3.7-5.4); SODIUM 138 mEq/L (136-147)
[2016-10-19 19:55] LABS: ANION GAP 13 MEQ/L (2-14)
[2016-10-19 19:56] LABS: GLUCOSE 321 mg/dL (70-99); TOTAL BILIRUBIN 0.3 mg/dL (0.0-1.0)
[2016-10-19 19:58] LABS: ALKALINE PHOSPHATASE 86 IU/L (3-129); GFR ESTIMATE (CALCULATED) > 59 mL/min/
[2016-10-19 19:59] LABS: UREA NITROGEN (BUN) 10 mg/dL (9-23)
[2016-10-19 20:01] LABS: LIPASE 53 U/L (1.0-51.0)
[2016-10-19 20:07] LABS: QUANTITATIVE HCG < 4.0 MIU/ML
[2016-10-19 21:26] LABS: CARBON DIOXIDE (BICARBONATE) 29.8 MEQ/L (20-31)
[2016-10-19] MEDS ORDERED: BENTYL20 MG PO (23:45)
[2016-10-19] MEDS ORDERED: CITRATE OF MAG296 ML PO (23:45)
[2016-10-20 00:07] VITALS: BP 123/71
[2016-10-20 00:12] LABS: POINT-OF-CARE METER ID UU13113747
== END 2016-10-20 00:08 | disposition home or self-care (01) ==
LOC: EME 18:48
PROVIDERS: Physician Assistant Medical
DX: R10.12 Left upper quadrant pain (principal); K59.00 Constipation, unspecified; R11.2 Nausea with vomiting, unspecified; I10 Essential (primary) hypertension; E11.9 Type 2 diabetes mellitus without complications; Z79.4 Long term (current) use of insulin; J45.909 Unspecified asthma, uncomplicated; Z87.891 Personal history of nicotine dependence
CPT/HCPCS: 74022; 74177; 80053; 81003; 82010; 82803; 82948; 83690; 84702; 85027; 99281; 99284; J1885; J3010; J7030

== ENCOUNTER 2016-11-13 22:33 | Emergency (ER) | payer OTHER ==
[~2016-11-13] VITALS: Ht 154.9 cm; Wt 106.8 kg
[~2016-11-13 22:33] MED LIST changes: +BENTYL20 MG PO; +CITRATE OF MAG296 ML PO
[2016-11-13 23:25] LABS: HEMATOCRIT 40.1 % (36.0-46.0); MCH 28.2 PG (29.0-34.0); MCHC 32.2 G/DL (30.0-36.0); MCV 87.7 FL (83-99); MEAN PLAT.VOLUME 9.5 uM^3 (9.5-12.4); PLATELET COUNT 283 K/uL (156-360); RBC DIS.WIDTH-CV 12.7 % (11.8-14.6); RBC DIS.WIDTH-SD 40.5 % (39-53); RED BLOOD COUNT 4.57 M/uL (3.80-5.20); WHITE BLOOD COUNT 11.4 K/uL (4.1-10.2)
[2016-11-13 23:32] LABS: CHLORIDE 103 mEq/L (99-109); SODIUM 142 mEq/L (136-147)
[2016-11-13 23:33] LABS: GLUCOSE 170 mg/dL (70-99)
[2016-11-13 23:35] LABS: ANION GAP 15 MEQ/L (2-14)
[2016-11-13 23:37] LABS: GFR ESTIMATE (CALCULATED) > 59 mL/min/
[2016-11-13 23:38] LABS: UREA NITROGEN (BUN) 11 mg/dL (9-23)
[2016-11-13 23:43] LABS: TROP-I INTERPRETATION NEGATIVE; TROPONIN-I < 0.01 ng/mL (0.0-0.30)
[2016-11-14 02:10] LABS: TROP-I INTERPRETATION NEGATIVE; TROPONIN-I < 0.01 ng/mL (0.0-0.30)
[2016-11-14 02:33] VITALS: BP 84/71
== END 2016-11-14 02:37 | disposition home or self-care (01) ==
LOC: EME 22:33
PROVIDERS: Emergency Medicine
DX: R07.9 Chest pain, unspecified (principal); K21.9 Gastro-esophageal reflux disease without esophagitis; J45.909 Unspecified asthma, uncomplicated; I10 Essential (primary) hypertension; E11.9 Type 2 diabetes mellitus without complications; Z79.84 Long term (current) use of oral hypoglycemic drugs; Z90.49 Acquired absence of other specified parts of digestive tract; Z87.891 Personal history of nicotine dependence
CPT/HCPCS: 71020; 80048; 84484; 85027; 93005; 99281; 99284

== ENCOUNTER 2016-11-17 22:06 | Emergency (ER) | payer OTHER ==
[~2016-11-17] VITALS: Ht 154.9 cm; Wt 105.9 kg
[2016-11-17 22:53] LABS: POINT-OF-CARE METER ID UU13113778
[2016-11-17 23:12] LABS: HEMATOCRIT 41.5 % (36.0-46.0); MCH 28.8 PG (29.0-34.0); MCHC 32.8 G/DL (30.0-36.0); MCV 87.7 FL (83-99); MEAN PLAT.VOLUME 9.7 uM^3 (9.5-12.4); PLATELET COUNT 347 K/uL (156-360); RBC DIS.WIDTH-CV 12.6 % (11.8-14.6); RED BLOOD COUNT 4.73 M/uL (3.80-5.20); WHITE BLOOD COUNT 13.4 K/uL (4.1-10.2)
[2016-11-17 23:23] LABS: CHLORIDE 102 mEq/L (99-109); POTASSIUM 4.1 mEq/L (3.7-5.4); SODIUM 139 mEq/L (136-147)
[2016-11-17 23:25] LABS: GLUCOSE 101 mg/dL (70-99)
[2016-11-17 23:26] LABS: ANION GAP 14 MEQ/L (2-14)
[2016-11-17 23:27] LABS: TOTAL BILIRUBIN 0.4 mg/dL (0.0-1.0)
[2016-11-17 23:29] LABS: ALKALINE PHOSPHATASE 83 IU/L (3-129); GFR ESTIMATE (CALCULATED) > 59 mL/min/
[2016-11-17 23:30] LABS: UREA NITROGEN (BUN) 12 mg/dL (9-23)
[2016-11-17 23:38] LABS: QUANTITATIVE HCG < 4.0 MIU/ML
[2016-11-18 02:47] LABS: ADD MIUA? YES; BILIRUBIN NEGATIVE; BLOOD NEGATIVE; COLOR YELLOW ((YELLOW)); GLUCOSE (STRIP) NEGATIVE; KETONES NEGATIVE; LEUKOCYTES TRACE; NITRITE NEGATIVE; PROTEIN (STRIP) 100; SPECIFIC GRAVITY 1.023 (1.000-1.030); UROBILINOGEN 0.2 MG/DL (0.2-1.0)
[2016-11-18 02:49] LABS: LIPASE 9 U/L (1.0-51.0)
[2016-11-18 02:51] LABS: BACTERIA RARE /HPF; EPITHELIAL CELLS RARE /HPF; HYALINE CASTS 0-5 /LPF; MUCUS 2+ /LPF; RED BLOOD CELLS 0-5 /HPF (0-5); UCUL ADDED? NO; WHITE BLOOD CELLS 0-5 /HPF (0-5)
[2016-11-18] MEDS ORDERED: ZOFRAN4 MG PO (02:59)
[2016-11-18 03:29] VITALS: BP 123/85
== END 2016-11-18 03:30 | disposition home or self-care (01) ==
LOC: EME 22:06
DX: R10.12 Left upper quadrant pain (principal); R11.10 Vomiting, unspecified; R19.7 Diarrhea, unspecified; J45.909 Unspecified asthma, uncomplicated; E11.9 Type 2 diabetes mellitus without complications; G43.909 Migraine, unspecified, not intractable, without status migrainosus; K21.9 Gastro-esophageal reflux disease without esophagitis; Z79.891 Long term (current) use of opiate analgesic; Z79.84 Long term (current) use of oral hypoglycemic drugs; Z87.891 Personal history of nicotine dependence
CPT/HCPCS: 80053; 81003; 82948; 83690; 84702; 85027; 99281; 99284; J1885

== ENCOUNTER 2016-12-12 15:55 | Emergency (ER) | payer OTHER ==
[~2016-12-12] VITALS: Ht 154.9 cm; Wt 101.7 kg
[2016-12-12 16:53] LABS: HEMATOCRIT 45.8 % (36.0-46.0); MCH 28.8 PG (29.0-34.0); MCHC 33.4 G/DL (30.0-36.0); MCV 86.1 FL (83-99); MEAN PLAT.VOLUME 9.6 uM^3 (9.5-12.4); PLATELET COUNT 348 K/uL (156-360); RBC DIS.WIDTH-CV 12.8 % (11.8-14.6); RBC DIS.WIDTH-SD 39.8 % (39-53); RED BLOOD COUNT 5.32 M/uL (3.80-5.20); WHITE BLOOD COUNT 13.6 K/uL (4.1-10.2)
[2016-12-12 17:01] LABS: CHLORIDE 101 mEq/L (99-109); POTASSIUM 3.4 mEq/L (3.7-5.4); SODIUM 141 mEq/L (136-147)
[2016-12-12 17:03] LABS: GLUCOSE 111 mg/dL (70-99)
[2016-12-12 17:05] LABS: ANION GAP 16 MEQ/L (2-14); TOTAL BILIRUBIN 0.4 mg/dL (0.0-1.0)
[2016-12-12 17:07] LABS: ALKALINE PHOSPHATASE 94 IU/L (3-129); GFR ESTIMATE (CALCULATED) > 59 mL/min/
[2016-12-12 17:08] LABS: UREA NITROGEN (BUN) 9 mg/dL (9-23)
[2016-12-12 17:11] LABS: LIPASE 11 U/L (1.0-51.0)
[2016-12-12 17:16] LABS: QUANTITATIVE HCG < 4.0 MIU/ML
[2016-12-12] MEDS ORDERED: LISINOPRIL20 MG PO (17:38)
[2016-12-12 17:39] LABS: ADD MIUA? YES; BILIRUBIN NEGATIVE; BLOOD SMALL; COLOR YELLOW ((YELLOW)); GLUCOSE (STRIP) NEGATIVE; KETONES NEGATIVE; LEUKOCYTES NEGATIVE; NITRITE NEGATIVE; PROTEIN (STRIP) 100; SPECIFIC GRAVITY 1.021 (1.000-1.030); UROBILINOGEN 0.2 MG/DL (0.2-1.0)
[2016-12-12 17:57] LABS: BACTERIA NONE SEEN /HPF; EPITHELIAL CELLS RARE /HPF; HYALINE CASTS 0-5 /LPF; MUCUS TRACE /LPF; RED BLOOD CELLS 0-5 /HPF (0-5); UCUL ADDED? NO; WHITE BLOOD CELLS 0-5 /HPF (0-5)
[2016-12-12] MEDS ORDERED: ZOFRAN ODT4 MG PO (18:33)
[2016-12-12] MEDS ORDERED: BENTYL10 MG PO (18:33)
[2016-12-12 18:43] VITALS: BP 135/84
== END 2016-12-12 18:44 | disposition home or self-care (01) ==
LOC: EME 15:55
PROVIDERS: Physician Assistant Medical
DX: R10.12 Left upper quadrant pain (principal); J45.909 Unspecified asthma, uncomplicated; E11.9 Type 2 diabetes mellitus without complications; K21.9 Gastro-esophageal reflux disease without esophagitis; I10 Essential (primary) hypertension; Z87.891 Personal history of nicotine dependence; Z79.84 Long term (current) use of oral hypoglycemic drugs; Z86.73 Personal history of transient ischemic attack (TIA), and cerebral infarction without residual deficits
CPT/HCPCS: 80053; 81003; 83690; 84702; 85027; 99281; 99284; J1885

== ENCOUNTER 2016-12-31 19:09 | Emergency (ER) | payer OTHER ==
[~2016-12-31] VITALS: Ht 154.9 cm; Wt 105.2 kg
[~2016-12-31 19:09] MED LIST changes: +LISINOPRIL20 MG PO
[2016-12-31 19:36] LABS: HEMATOCRIT 39.4 % (36.0-46.0); MCH 29.1 PG (29.0-34.0); MCHC 33.5 G/DL (30.0-36.0); MCV 86.8 FL (83-99); MEAN PLAT.VOLUME 9.5 uM^3 (9.5-12.4); PLATELET COUNT 301 K/uL (156-360); RBC DIS.WIDTH-CV 12.8 % (11.8-14.6); RBC DIS.WIDTH-SD 40.4 % (39-53); RED BLOOD COUNT 4.54 M/uL (3.80-5.20); WHITE BLOOD COUNT 11.3 K/uL (4.1-10.2)
[2016-12-31 19:39] LABS: CHLORIDE 101 mEq/L (99-109); POTASSIUM 3.7 mEq/L (3.7-5.4); SODIUM 137 mEq/L (136-147)
[2016-12-31 19:41] LABS: GLUCOSE 209 mg/dL (70-99)
[2016-12-31 19:42] LABS: ANION GAP 12 MEQ/L (2-14)
[2016-12-31 19:45] LABS: GFR ESTIMATE (CALCULATED) > 59 mL/min/
[2016-12-31 19:46] LABS: UREA NITROGEN (BUN) 5 mg/dL (9-23)
[2016-12-31 19:53] LABS: QUANTITATIVE HCG < 4.0 MIU/ML
[2016-12-31 20:15] VITALS: BP 148/90
== END 2016-12-31 20:17 | disposition home or self-care (01) ==
LOC: EME 19:09
PROVIDERS: Physician Assistant
DX: R51 Headache (principal); I10 Essential (primary) hypertension; E11.9 Type 2 diabetes mellitus without complications; Z79.84 Long term (current) use of oral hypoglycemic drugs; K21.9 Gastro-esophageal reflux disease without esophagitis; J45.909 Unspecified asthma, uncomplicated; E28.2 Polycystic ovarian syndrome; Z86.73 Personal history of transient ischemic attack (TIA), and cerebral infarction without residual deficits; F32.9 Major depressive disorder, single episode, unspecified; F41.9 Anxiety disorder, unspecified; F10.10 Alcohol abuse, uncomplicated; Z87.891 Personal history of nicotine dependence; Z88.0 Allergy status to penicillin
CPT/HCPCS: 80048; 84702; 85027; 93005; 99281; 99283; J1885

== ENCOUNTER 2017-01-16 19:42 | Emergency (ER) | payer OTHER ==
[~2017-01-16] VITALS: Ht 154.9 cm; Wt 105.2 kg
[2017-01-16 20:37] LABS: HEMATOCRIT 38.9 % (36.0-46.0); MCH 28.9 PG (29.0-34.0); MCHC 32.9 G/DL (30.0-36.0); MCV 87.8 FL (83-99); MEAN PLAT.VOLUME 9.8 uM^3 (9.5-12.4); PLATELET COUNT 326 K/uL (156-360); RBC DIS.WIDTH-CV 12.8 % (11.8-14.6); RBC DIS.WIDTH-SD 41.1 % (39-53); RED BLOOD COUNT 4.43 M/uL (3.80-5.20); WHITE BLOOD COUNT 11.4 K/uL (4.1-10.2)
[2017-01-16 20:46] LABS: CHLORIDE 101 mEq/L (99-109); POTASSIUM 4.2 mEq/L (3.7-5.4); SODIUM 138 mEq/L (136-147)
[2017-01-16 20:47] LABS: GLUCOSE 249 mg/dL (70-99)
[2017-01-16 20:49] LABS: ANION GAP 15 MEQ/L (2-14)
[2017-01-16 20:51] LABS: GFR ESTIMATE (CALCULATED) > 59 mL/min/
[2017-01-16 20:52] LABS: UREA NITROGEN (BUN) 7 mg/dL (9-23)
[2017-01-16 20:59] LABS: TROP-I INTERPRETATION NEGATIVE; TROPONIN-I < 0.01 ng/mL (0.0-0.30)
[2017-01-16 22:24] LABS: TROP-I INTERPRETATION NEGATIVE; TROPONIN-I < 0.01 ng/mL (0.0-0.30)
[2017-01-16] MEDS ORDERED: XANAX0.5 MG PO (23:03)
[2017-01-16 23:18] VITALS: BP 144/70
== END 2017-01-16 23:19 | disposition home or self-care (01) ==
LOC: EME 19:42
PROVIDERS: Emergency Medicine
DX: R07.9 Chest pain, unspecified (principal); I51.7 Cardiomegaly; Z87.891 Personal history of nicotine dependence; E11.9 Type 2 diabetes mellitus without complications; I10 Essential (primary) hypertension; K21.9 Gastro-esophageal reflux disease without esophagitis; Z86.73 Personal history of transient ischemic attack (TIA), and cerebral infarction without residual deficits; Z79.891 Long term (current) use of opiate analgesic; Z79.84 Long term (current) use of oral hypoglycemic drugs; K76.0 Fatty (change of) liver, not elsewhere classified
CPT/HCPCS: 71020; 80048; 84484; 85027; 93005; 99281; 99284

== ENCOUNTER 2017-02-01 17:26 | Emergency (ER) | payer OTHER ==
[~2017-02-01] VITALS: Ht 154.9 cm; Wt 106.3 kg
[2017-02-01 19:11] LABS: EOSINOPHIL (%) 4.9 % (0-5); EOSINOPHIL COUNT 0.4 K/uL (0-0.3); HEMATOCRIT 38.5 % (36.0-46.0); IMMATURE GRANULOCYTE (%) 0.7 % (0.0-0.7); IMMATURE GRANULOCYTE COUNT 0.1 K/uL; INSTRUMENT ABS NEUTROPHIL CT 5.7 K/uL; LYMPHOCYTE COUNT 2.4 K/uL (1.0-2.8); MCH 28.4 PG (29.0-34.0); MCHC 32.2 G/DL (30.0-36.0); MCV 88.3 FL (83-99); MONOCYTE (%) 4.6 % (3-12); MONOCYTE COUNT 0.4 K/uL (0-0.8); NEUTROPHIL (%) 62.8 % (45-76); NEUTROPHIL COUNT 5.7 K/uL (1.8-6.4); PLATELET COUNT 274 K/uL (156-360); RBC DIS.WIDTH-CV 12.7 % (11.8-14.6); RBC DIS.WIDTH-SD 41.1 % (39-53); RED BLOOD COUNT 4.36 M/uL (3.80-5.20)
[2017-02-01 19:21] LABS: CHLORIDE 102 mEq/L (99-109); SODIUM 137 mEq/L (136-147)
[2017-02-01 19:23] LABS: GLUCOSE 274 mg/dL (70-99)
[2017-02-01 19:24] LABS: ANION GAP 10 MEQ/L (2-14)
[2017-02-01 19:25] LABS: TOTAL BILIRUBIN 0.3 mg/dL (0.0-1.0)
[2017-02-01 19:26] LABS: ALKALINE PHOSPHATASE 82 IU/L (3-129)
[2017-02-01 19:27] LABS: GFR ESTIMATE (CALCULATED) > 59 mL/min/
[2017-02-01 19:28] LABS: UREA NITROGEN (BUN) 6 mg/dL (9-23)
[2017-02-01 19:36] LABS: QUANTITATIVE HCG < 4.0 MIU/ML
[2017-02-01 21:00] LABS: ADD MIUA? YES; BILIRUBIN NEGATIVE; BLOOD MODERATE; COLOR STRAW ((YELLOW)); GLUCOSE (STRIP) NEGATIVE; KETONES NEGATIVE; LEUKOCYTES TRACE; NITRITE NEGATIVE; PROTEIN (STRIP) NEGATIVE; SPECIFIC GRAVITY 1.017 (1.000-1.030); UROBILINOGEN 0.2 MG/DL (0.2-1.0)
[2017-02-01 21:03] LABS: BACTERIA NONE SEEN /HPF; EPITHELIAL CELLS RARE /HPF; MUCUS NONE SEEN /LPF; RED BLOOD CELLS 0-5 /HPF (0-5); UCUL ADDED? NO; WHITE BLOOD CELLS 0-5 /HPF (0-5)
[2017-02-01 22:50] VITALS: BP 147/91
== END 2017-02-01 23:10 | disposition home or self-care (01) ==
LOC: EME 17:26
PROVIDERS: Emergency Medicine
DX: R10.9 Unspecified abdominal pain (principal); Z98.890 Other specified postprocedural states; K21.9 Gastro-esophageal reflux disease without esophagitis; J45.909 Unspecified asthma, uncomplicated; I10 Essential (primary) hypertension; E11.9 Type 2 diabetes mellitus without complications; F41.9 Anxiety disorder, unspecified; F32.9 Major depressive disorder, single episode, unspecified; F31.9 Bipolar disorder, unspecified; K76.0 Fatty (change of) liver, not elsewhere classified; Z79.84 Long term (current) use of oral hypoglycemic drugs; Z87.891 Personal history of nicotine dependence; Z88.0 Allergy status to penicillin; Z88.8 Allergy status to other drugs, medicaments and biological substances; Z86.73 Personal history of transient ischemic attack (TIA), and cerebral infarction without residual deficits
CPT/HCPCS: 74177; 80053; 81003; 84702; 85025; 86850; 86900; 86901; 99281; 99285; J3010; J7030

== ENCOUNTER → 2017-02-01 | Outpatient (CLI) | payer OTHER ==
[~2017-02-01] VITALS: Ht 154.9 cm; Wt 105.2 kg
[~2017-02-01] MED LIST changes: +ERYTHROMYC1 APPLICAT LEFT EYE; +JOLIVETTE0.35 MG PO; +RANITIDINE HCL150 MG PO
[2017-02-01 09:02] LABS: HEMATOCRIT 37.9 % (36.0-46.0); MCH 28.6 PG (29.0-34.0); MCHC 32.5 G/DL (30.0-36.0); MCV 88.1 FL (83-99); MEAN PLAT.VOLUME 9.6 uM^3 (9.5-12.4); PLATELET COUNT 263 K/uL (156-360); RBC DIS.WIDTH-CV 12.7 % (11.8-14.6); RBC DIS.WIDTH-SD 40.9 % (39-53)
[2017-02-01 09:03] LABS: POINT-OF-CARE METER ID UU14174212
[2017-02-01 09:08] LABS: INTER. NORMALIZED RATIO 1.1; PROTHROMBIN TIME 12.1 SEC (10.2-12.9)
[2017-02-01 09:11] LABS: PTT 33.3 SEC (25-37)
== END | disposition home or self-care (01) ==
LOC: OPR 08:14 → EDSTATUS 09:00
PROVIDERS: Internal Medicine Gastroenterology
PROC: 0FB13ZX Excision of Right Lobe Liver, Percutaneous Approach, Diagnostic (ICD-10-PCS; principal; 2017-02-01)
DX: K75.81 Nonalcoholic steatohepatitis (NASH) (principal); K21.9 Gastro-esophageal reflux disease without esophagitis; R19.7 Diarrhea, unspecified; F41.9 Anxiety disorder, unspecified; J45.909 Unspecified asthma, uncomplicated; E66.9 Obesity, unspecified; R10.12 Left upper quadrant pain; Z86.010 Personal history of colon polyps; F31.9 Bipolar disorder, unspecified; E11.9 Type 2 diabetes mellitus without complications; Z86.19 Personal history of other infectious and parasitic diseases; I10 Essential (primary) hypertension; Z90.49 Acquired absence of other specified parts of digestive tract; Z79.84 Long term (current) use of oral hypoglycemic drugs; Z87.891 Personal history of nicotine dependence
CPT/HCPCS: 77012; 82948; 85027; 85610; 85730; 88307; 88313; J3010

== ENCOUNTER 2017-02-08 18:46 | Emergency (ER) | payer OTHER ==
[~2017-02-08] VITALS: Ht 154.9 cm; Wt 105.5 kg
[2017-02-08 19:31] LABS: HEMATOCRIT 40.5 % (36.0-46.0); MCH 28.6 PG (29.0-34.0); MCHC 32.6 G/DL (30.0-36.0); MCV 87.9 FL (83-99); PLATELET COUNT 330 K/uL (156-360); RBC DIS.WIDTH-CV 12.3 % (11.8-14.6); RBC DIS.WIDTH-SD 39.5 % (39-53); RED BLOOD COUNT 4.61 M/uL (3.80-5.20); WHITE BLOOD COUNT 10.5 K/uL (4.1-10.2)
[2017-02-08 19:48] LABS: CHLORIDE 104 mEq/L (99-109); POTASSIUM 4.4 mEq/L (3.7-5.4); SODIUM 137 mEq/L (136-147)
[2017-02-08 19:50] LABS: GLUCOSE 373 mg/dL (70-99)
[2017-02-08 19:51] LABS: ANION GAP 11 MEQ/L (2-14)
[2017-02-08 19:54] LABS: GFR ESTIMATE (CALCULATED) > 59 mL/min/; TROP-I INTERPRETATION NEGATIVE; TROPONIN-I < 0.01 ng/mL (0.0-0.30); UREA NITROGEN (BUN) 6 mg/dL (9-23)
[2017-02-08 23:49] LABS: TROP-I INTERPRETATION NEGATIVE; TROPONIN-I < 0.01 ng/mL (0.0-0.30)
[2017-02-09 00:41] LABS: ADD MIUA? YES; BILIRUBIN NEGATIVE; BLOOD LARGE; COLOR YELLOW ((YELLOW)); GLUCOSE (STRIP) 50; KETONES NEGATIVE; LEUKOCYTES TRACE; NITRITE NEGATIVE; PROTEIN (STRIP) NEGATIVE; UROBILINOGEN 0.2 MG/DL (0.2-1.0)
[2017-02-09 01:10] LABS: BACTERIA 2+ /HPF; EPITHELIAL CELLS 1+ /HPF; MUCUS 1+ /LPF; RED BLOOD CELLS 30-40 /HPF (0-5); UCUL ADDED? YES; WHITE BLOOD CELLS 0-5 /HPF (0-5)
[2017-02-09 01:18] VITALS: BP 133/70
== END 2017-02-09 01:20 | disposition home or self-care (01) ==
LOC: EME 18:46
PROVIDERS: Physician Assistant
DX: R07.9 Chest pain, unspecified (principal); Z86.59 Personal history of other mental and behavioral disorders; R51 Headache; R42 Dizziness and giddiness; I10 Essential (primary) hypertension; K76.0 Fatty (change of) liver, not elsewhere classified; R91.8 Other nonspecific abnormal finding of lung field; J45.909 Unspecified asthma, uncomplicated; E11.9 Type 2 diabetes mellitus without complications; Z79.84 Long term (current) use of oral hypoglycemic drugs; Z86.73 Personal history of transient ischemic attack (TIA), and cerebral infarction without residual deficits; Z87.891 Personal history of nicotine dependence
CPT/HCPCS: 71020; 71275; 80048; 81003; 84484; 85027; 85379; 87086; 93005; 99281; 99284

== ENCOUNTER 2017-02-21 13:58 | Emergency (ER) | payer OTHER ==
[~2017-02-21] VITALS: Ht 154.9 cm; Wt 106.8 kg
[2017-02-21 16:48] LABS: HEMATOCRIT 36.8 % (36.0-46.0); MCH 28.7 PG (29.0-34.0); MCHC 32.9 G/DL (30.0-36.0); MCV 87.4 FL (83-99); MEAN PLAT.VOLUME 9.9 uM^3 (9.5-12.4); PLATELET COUNT 260 K/uL (156-360); RBC DIS.WIDTH-CV 12.2 % (11.8-14.6); RBC DIS.WIDTH-SD 39.3 % (39-53); RED BLOOD COUNT 4.21 M/uL (3.80-5.20); WHITE BLOOD COUNT 9.1 K/uL (4.1-10.2)
[2017-02-21 16:58] LABS: CHLORIDE 101 mEq/L (99-109); SODIUM 135 mEq/L (136-147)
[2017-02-21 16:59] LABS: POTASSIUM 3.5 mEq/L (3.7-5.4)
[2017-02-21 17:00] LABS: GLUCOSE 273 mg/dL (70-99)
[2017-02-21 17:01] LABS: ANION GAP 11 MEQ/L (2-14)
[2017-02-21 17:02] LABS: TOTAL BILIRUBIN 0.3 mg/dL (0.0-1.0)
[2017-02-21 17:04] LABS: ADD MIUA? YES; BILIRUBIN NEGATIVE; BLOOD MODERATE; COLOR COLORLESS ((YELLOW)); GLUCOSE (STRIP) >=500; KETONES NEGATIVE; LEUKOCYTES NEGATIVE; NITRITE NEGATIVE; PROTEIN (STRIP) NEGATIVE; SPECIFIC GRAVITY 1.009 (1.000-1.030); UROBILINOGEN 0.2 MG/DL (0.2-1.0)
[2017-02-21 17:04] LABS: ALKALINE PHOSPHATASE 93 IU/L (3-129); GFR ESTIMATE (CALCULATED) > 59 mL/min/
[2017-02-21 17:05] LABS: UREA NITROGEN (BUN) 5 mg/dL (9-23)
[2017-02-21 17:07] LABS: BACTERIA RARE /HPF; EPITHELIAL CELLS NONE SEEN /HPF; MUCUS TRACE /LPF; RED BLOOD CELLS 0-5 /HPF (0-5); UCUL ADDED? NO; WHITE BLOOD CELLS 0-5 /HPF (0-5)
[2017-02-21 17:52] LABS: POINT-OF-CARE METER ID UU13113800
[2017-02-21 19:00] VITALS: BP 152/87
[2017-02-22 09:36] LABS: POINT-OF-CARE METER ID UU13113778
== END 2017-02-21 19:00 | disposition home or self-care (01) ==
LOC: EME 13:58
PROVIDERS: Physician Assistant
DX: E11.65 Type 2 diabetes mellitus with hyperglycemia (principal); J45.909 Unspecified asthma, uncomplicated; F32.9 Major depressive disorder, single episode, unspecified; I10 Essential (primary) hypertension; G43.909 Migraine, unspecified, not intractable, without status migrainosus; K21.9 Gastro-esophageal reflux disease without esophagitis; F41.9 Anxiety disorder, unspecified; Z86.73 Personal history of transient ischemic attack (TIA), and cerebral infarction without residual deficits; Z87.891 Personal history of nicotine dependence; Z79.891 Long term (current) use of opiate analgesic; Z88.0 Allergy status to penicillin; Z88.8 Allergy status to other drugs, medicaments and biological substances; Z79.84 Long term (current) use of oral hypoglycemic drugs
CPT/HCPCS: 80053; 81003; 82010; 82948; 85027; 99281; 99285; J7030

== ENCOUNTER 2017-03-08 11:40 | Emergency (ER) | payer OTHER ==
[~2017-03-08] VITALS: Ht 154.9 cm; Wt 105.4 kg
[2017-03-08 12:14] LABS: POINT-OF-CARE METER ID UU13113747
[2017-03-08 12:45] LABS: BASOPHIL COUNT 0.1 K/uL (0-0.1); EOSINOPHIL (%) 3.4 % (0-5); EOSINOPHIL COUNT 0.3 K/uL (0-0.3); HEMATOCRIT 38.3 % (36.0-46.0); IMMATURE GRANULOCYTE (%) 0.9 % (0.0-0.7); IMMATURE GRANULOCYTE COUNT 0.1 K/uL; INSTRUMENT ABS NEUTROPHIL CT 5.4 K/uL; MCH 28.6 PG (29.0-34.0); MCHC 32.6 G/DL (30.0-36.0); MCV 87.6 FL (83-99); MEAN PLAT.VOLUME 9.7 uM^3 (9.5-12.4); MONOCYTE COUNT 0.4 K/uL (0-0.8); NEUTROPHIL (%) 65.7 % (45-76); NEUTROPHIL COUNT 5.4 K/uL (1.8-6.4); PLATELET COUNT 289 K/uL (156-360); RBC DIS.WIDTH-CV 11.9 % (11.8-14.6); RED BLOOD COUNT 4.37 M/uL (3.80-5.20); WHITE BLOOD COUNT 8.2 K/uL (4.1-10.2)
[2017-03-08 12:53] LABS: CARBON DIOXIDE (BICARBONATE) 29.8 MEQ/L (20-31)
[2017-03-08 12:56] LABS: CHLORIDE 102 mEq/L (99-109); POTASSIUM 3.9 mEq/L (3.7-5.4); SODIUM 138 mEq/L (136-147)
[2017-03-08 12:58] LABS: GLUCOSE 321 mg/dL (70-99)
[2017-03-08 12:59] LABS: ANION GAP 12 MEQ/L (2-14)
[2017-03-08 13:00] LABS: TOTAL BILIRUBIN 0.3 mg/dL (0.0-1.0)
[2017-03-08 13:01] LABS: ALKALINE PHOSPHATASE 84 IU/L (3-129)
[2017-03-08 13:02] LABS: GFR ESTIMATE (CALCULATED) > 59 mL/min/
[2017-03-08 13:03] LABS: UREA NITROGEN (BUN) 5 mg/dL (9-23)
[2017-03-08 13:10] LABS: QUANTITATIVE HCG < 4.0 MIU/ML
[2017-03-08 14:23] LABS: POINT-OF-CARE METER ID UU13113747
[2017-03-08] MEDS ORDERED: DONNATAL1 TABLET PO (14:52)
[2017-03-08 15:20] VITALS: BP 130/69
[2017-03-08 15:31] LABS: POINT-OF-CARE METER ID UU13113747
== END 2017-03-08 15:26 | disposition home or self-care (01) ==
LOC: EME 11:40
PROVIDERS: Emergency Medicine
DX: E11.65 Type 2 diabetes mellitus with hyperglycemia (principal); R10.84 Generalized abdominal pain; Z79.84 Long term (current) use of oral hypoglycemic drugs; I10 Essential (primary) hypertension; J45.909 Unspecified asthma, uncomplicated; K21.9 Gastro-esophageal reflux disease without esophagitis; F32.9 Major depressive disorder, single episode, unspecified; F41.9 Anxiety disorder, unspecified; Z88.0 Allergy status to penicillin; Z87.891 Personal history of nicotine dependence
CPT/HCPCS: 80053; 82803; 82948; 84702; 85025; 99281; 99285; J7030

== ENCOUNTER 2017-03-18 23:20 | Emergency (ER) | payer OTHER ==
[~2017-03-18] VITALS: Ht 154.9 cm; Wt 105.9 kg
[~2017-03-18 23:20] MED LIST changes: +DONNATAL1 TABLET PO
[2017-03-18 23:46] VITALS: BP 165/97
== END 2017-03-19 00:01 | disposition home or self-care (01) ==
LOC: EME 23:20
DX: R06.00 Dyspnea, unspecified (principal); F41.9 Anxiety disorder, unspecified; I10 Essential (primary) hypertension; J45.909 Unspecified asthma, uncomplicated; E11.9 Type 2 diabetes mellitus without complications; Z79.84 Long term (current) use of oral hypoglycemic drugs; Z87.891 Personal history of nicotine dependence; Z79.891 Long term (current) use of opiate analgesic
CPT/HCPCS: 99281; 99284

== ENCOUNTER 2017-03-27 16:37 | Emergency (ER) | payer OTHER ==
[~2017-03-27] VITALS: Ht 154.9 cm; Wt 108.1 kg
[2017-03-27 17:56] LABS: HEMATOCRIT 41.9 % (36.0-46.0); MCH 28.4 PG (29.0-34.0); MCHC 32.7 G/DL (30.0-36.0); MCV 86.7 FL (83-99); MEAN PLAT.VOLUME 9.9 uM^3 (9.5-12.4); PLATELET COUNT 313 K/uL (156-360); RBC DIS.WIDTH-SD 38.4 % (39-53); RED BLOOD COUNT 4.83 M/uL (3.80-5.20); WHITE BLOOD COUNT 10.5 K/uL (4.1-10.2)
[2017-03-27 18:14] LABS: CHLORIDE 99 mEq/L (99-109); POTASSIUM 4.7 mEq/L (3.7-5.4); SODIUM 134 mEq/L (136-147)
[2017-03-27 18:16] LABS: GLUCOSE 349 mg/dL (70-99)
[2017-03-27 18:17] LABS: ANION GAP 16 MEQ/L (2-14)
[2017-03-27 18:18] LABS: TOTAL BILIRUBIN 0.3 mg/dL (0.0-1.0)
[2017-03-27 18:20] LABS: ALKALINE PHOSPHATASE 106 IU/L (3-129); GFR ESTIMATE (CALCULATED) > 59 mL/min/
[2017-03-27 18:21] LABS: UREA NITROGEN (BUN) 11 mg/dL (9-23)
[2017-03-27 18:23] LABS: LIPASE 19 U/L (1.0-51.0)
[2017-03-27 18:30] LABS: QUANTITATIVE HCG < 4.0 MIU/ML
[2017-03-27 18:44] LABS: ADD MIUA? YES; BILIRUBIN NEGATIVE; BLOOD SMALL; COLOR STRAW ((YELLOW)); GLUCOSE (STRIP) >=500; KETONES NEGATIVE; LEUKOCYTES NEGATIVE; NITRITE NEGATIVE; PROTEIN (STRIP) NEGATIVE; SPECIFIC GRAVITY 1.008 (1.000-1.030); UROBILINOGEN 0.2 MG/DL (0.2-1.0)
[2017-03-27 18:50] LABS: BACTERIA RARE /HPF; EPITHELIAL CELLS RARE /HPF; MUCUS TRACE /LPF; RED BLOOD CELLS 0-5 /HPF (0-5); UCUL ADDED? NO; WHITE BLOOD CELLS 0-5 /HPF (0-5)
[2017-03-27 19:34] LABS: AMYLASE 17 IU/L (1-118); SAMPLE HEMOLYSIS CHECK 0; SAMPLE ICTERIC CHECK 0; SAMPLE LIPEMIA CHECK 0
[2017-03-27 22:09] LABS: POINT-OF-CARE METER ID UU13113800
[2017-03-27 22:30] LABS: CHLORIDE 102 mEq/L (99-109); POTASSIUM 4.7 mEq/L (3.7-5.4); SODIUM 136 mEq/L (136-147)
[2017-03-27 22:32] LABS: GLUCOSE 288 mg/dL (70-99)
[2017-03-27 22:33] LABS: ANION GAP 16 MEQ/L (2-14)
[2017-03-27 22:36] LABS: GFR ESTIMATE (CALCULATED) > 59 mL/min/; UREA NITROGEN (BUN) 10 mg/dL (9-23)
[2017-03-27 22:59] LABS: CARBON DIOXIDE (BICARBONATE) 25.6 MEQ/L (20-31)
[2017-03-28 00:12] LABS: POINT-OF-CARE METER ID UU13113800; POINT-OF-CARE USER ID PUTMLD10
[2017-03-28] MEDS ORDERED: ZOFRAN4 MG PO (00:58)
[2017-03-28 01:07] VITALS: BP 159/93
== END 2017-03-28 01:08 | disposition home or self-care (01) ==
LOC: EME 16:37
PROVIDERS: Physician Assistant
DX: E11.65 Type 2 diabetes mellitus with hyperglycemia (principal); R11.2 Nausea with vomiting, unspecified; R10.10 Upper abdominal pain, unspecified; K76.0 Fatty (change of) liver, not elsewhere classified; K21.9 Gastro-esophageal reflux disease without esophagitis; J45.909 Unspecified asthma, uncomplicated; I10 Essential (primary) hypertension; F41.9 Anxiety disorder, unspecified; F32.9 Major depressive disorder, single episode, unspecified; F31.9 Bipolar disorder, unspecified; Z90.49 Acquired absence of other specified parts of digestive tract; Z86.73 Personal history of transient ischemic attack (TIA), and cerebral infarction without residual deficits; Z87.891 Personal history of nicotine dependence; Z79.4 Long term (current) use of insulin; Z88.0 Allergy status to penicillin; Z88.5 Allergy status to narcotic agent
CPT/HCPCS: 76705; 80048 91; 80053; 81003; 82010; 82150; 82803; 82948; 83690; 84702; 85027; 99281; 99285; J1885; J2270; J2405; J7030

== ENCOUNTER 2017-04-18 15:45 | Emergency (ER) | payer OTHER ==
[~2017-04-18] VITALS: Ht 154.9 cm; Wt 70.3 kg
[2017-04-18 17:58] VITALS: BP 142/91
== END 2017-04-18 18:00 | disposition home or self-care (01) ==
LOC: EME 15:45
DX: J45.901 Unspecified asthma with (acute) exacerbation (principal); E66.01 Morbid (severe) obesity due to excess calories; Z68.29 Body mass index [BMI] 29.0-29.9, adult; I10 Essential (primary) hypertension; E11.9 Type 2 diabetes mellitus without complications; K21.9 Gastro-esophageal reflux disease without esophagitis; F41.9 Anxiety disorder, unspecified; F32.9 Major depressive disorder, single episode, unspecified; F31.9 Bipolar disorder, unspecified; K76.0 Fatty (change of) liver, not elsewhere classified; Z87.891 Personal history of nicotine dependence; Z86.73 Personal history of transient ischemic attack (TIA), and cerebral infarction without residual deficits; Z79.84 Long term (current) use of oral hypoglycemic drugs; Z88.0 Allergy status to penicillin; Z88.5 Allergy status to narcotic agent; Z88.8 Allergy status to other drugs, medicaments and biological substances
CPT/HCPCS: 71020; 94640; 99281; 99284

== ENCOUNTER 2017-06-04 14:21 | Emergency (ER) | payer OTHER ==
[~2017-06-04] VITALS: Ht 154.9 cm; Wt 110.7 kg
[2017-06-04 15:33] LABS: HEMATOCRIT 39.8 % (36.0-46.0); HEMOGLOBIN 13.1 G/DL (11.9-15.5); MCH 29.3 PG (29.0-34.0); MCHC 32.9 G/DL (30.0-36.0); PLATELET COUNT 283 K/uL (156-360); RBC DIS.WIDTH-CV 13.3 % (11.8-14.6); RBC DIS.WIDTH-SD 43.3 % (39-53); RED BLOOD COUNT 4.47 M/uL (3.80-5.20); WHITE BLOOD COUNT 12.8 K/uL (4.1-10.2)
[2017-06-04 15:41] LABS: ALBUMIN 3.8 g/dL (3.2-4.8); CHLORIDE 102 mEq/L (99-109); POTASSIUM 4.8 mEq/L (3.7-5.4); SODIUM 136 mEq/L (136-147)
[2017-06-04 15:43] LABS: GLUCOSE 200 mg/dL (70-99); TOTAL PROTEIN 6.8 g/dL (6.4-8.3)
[2017-06-04 15:45] LABS: TOTAL BILIRUBIN 0.2 mg/dL (0.0-1.0)
[2017-06-04 15:47] LABS: ALKALINE PHOSPHATASE 93 IU/L (3-129); CREATININE 0.8 mg/dL (0.6-1.3); GFR ESTIMATE (CALCULATED) > 59 mL/min/
[2017-06-04 15:48] LABS: UREA NITROGEN (BUN) 11 mg/dL (9-23)
[2017-06-04 15:49] LABS: AST (GOT) 99 IU/L (2-34)
[2017-06-04 15:50] LABS: ALT (GPT) 81 IU/L (3-49); LIPASE 11 U/L (1.0-51.0)
[2017-06-04 15:58] LABS: QUANTITATIVE HCG < 4.0 MIU/ML
[2017-06-04 16:05] LABS: APPEARANCE CLEAR ((CLEAR)); BILIRUBIN NEGATIVE; BLOOD NEGATIVE; COLOR YELLOW ((YELLOW)); GLUCOSE (STRIP) NEGATIVE; KETONES NEGATIVE; LEUKOCYTES TRACE; NITRITE NEGATIVE; PROTEIN (STRIP) NEGATIVE; SPECIFIC GRAVITY 1.016 (1.000-1.030); UROBILINOGEN 0.2 MG/DL (0.2-1.0)
[2017-06-04 16:07] LABS: BACTERIA RARE /HPF; EPITHELIAL CELLS RARE /HPF; MUCUS NONE SEEN /LPF; RED BLOOD CELLS 0-5 /HPF (0-5); UCUL ADDED? NO; WHITE BLOOD CELLS 0-5 /HPF (0-5)
[2017-06-04 16:21] LABS: INTER. NORMALIZED RATIO 1.1
[2017-06-04] MEDS ORDERED: PHENERGAN25 MG PR (17:20)
[2017-06-04 17:39] VITALS: BP 136/60
== END 2017-06-04 17:39 | disposition home or self-care (01) ==
LOC: EME 14:21
PROVIDERS: Physician Assistant
DX: R11.10 Vomiting, unspecified (principal); R10.33 Periumbilical pain; K21.9 Gastro-esophageal reflux disease without esophagitis; I10 Essential (primary) hypertension; E11.9 Type 2 diabetes mellitus without complications; J45.909 Unspecified asthma, uncomplicated; G47.30 Sleep apnea, unspecified; K76.0 Fatty (change of) liver, not elsewhere classified; F32.9 Major depressive disorder, single episode, unspecified; F41.9 Anxiety disorder, unspecified; F31.9 Bipolar disorder, unspecified; Z87.891 Personal history of nicotine dependence; Z90.49 Acquired absence of other specified parts of digestive tract; Z86.73 Personal history of transient ischemic attack (TIA), and cerebral infarction without residual deficits; Z79.84 Long term (current) use of oral hypoglycemic drugs; Z88.0 Allergy status to penicillin; Z88.5 Allergy status to narcotic agent; Z88.8 Allergy status to other drugs, medicaments and biological substances
CPT/HCPCS: 80053; 81003; 83690; 84702; 85027; 85610; 99281; 99284; J2550

== ENCOUNTER 2017-06-27 17:41 | Emergency (ER) | payer OTHER ==
[~2017-06-27 17:41] MED LIST changes: +PHENERGAN25 MG PR
== END 2017-06-27 18:35 | disposition left against medical advice (07) ==
LOC: EME 17:41
DX: R10.9 Unspecified abdominal pain (principal); Z53.21 Procedure and treatment not carried out due to patient leaving prior to being seen by health care provider

== ENCOUNTER 2017-08-27 05:39 | Day surgery (SDC) | payer OTHER ==
[~2017-08-27] VITALS: Ht 154.9 cm; Wt 104.7 kg
[~2017-08-27 05:39] MED LIST changes: +DULERA 200 MCG/13 GM IH; +HUMULIN R500 UNITS/ SC; +KADIAN10 MG PO; +LORATADINE-D 11 EAC1 PO; -MORPHINE SULFAT15 M1 PO; +OMEPRAZOLE40 M1 PO; +RESTORIL22.5 MG PO; -SERTRALINE HCL100 MG PO; -TEMAZEPAM15 MG PO; +ZESTRIL40 MG PO; +ZOLOFT25 MG PO
[2017-08-27 06:28] VITALS: BP 130/70
[2017-08-27] MEDS ORDERED: MOTRIN800 MG PO (08:45)
[2017-08-27 09:50] VITALS: BP 110/54
[2017-08-27 10:34] VITALS: BP 117/59
== END 2017-08-27 10:35 | disposition home or self-care (01) ==
LOC: SDC 05:39
PROVIDERS: Obstetrics & Gynecology
PROC: 0UDB8ZX Extraction of Endometrium, Via Natural or Artificial Opening Endoscopic, Diagnostic (ICD-10-PCS; principal; 2017-08-27)
DX: N84.0 Polyp of corpus uteri (principal); E28.2 Polycystic ovarian syndrome; N94.10 Unspecified dyspareunia; E66.01 Morbid (severe) obesity due to excess calories; Z68.42 Body mass index [BMI] 45.0-49.9, adult; E11.65 Type 2 diabetes mellitus with hyperglycemia; E78.00 Pure hypercholesterolemia, unspecified; I10 Essential (primary) hypertension; F31.9 Bipolar disorder, unspecified; Z87.891 Personal history of nicotine dependence; Z90.49 Acquired absence of other specified parts of digestive tract; Z82.49 Family history of ischemic heart disease and other diseases of the circulatory system; Z80.3 Family history of malignant neoplasm of breast; Z81.1 Family history of alcohol abuse and dependence; Z83.3 Family history of diabetes mellitus; Z82.0 Family history of epilepsy and other diseases of the nervous system; Z79.4 Long term (current) use of insulin; Z88.0 Allergy status to penicillin; Z88.8 Allergy status to other drugs, medicaments and biological substances
CPT/HCPCS: 82948; 88305; 94640; J0131; J0330; J1100; J1170; J2250; J2405; J3010

== ENCOUNTER 2017-09-17 13:57 | Inpatient (IN) | payer OTHER ==
[~2017-09-17] VITALS: Ht 154.9 cm; Wt 110.4 kg
[~2017-09-17 13:57] MED LIST changes: -KADIAN10 MG PO; +MOTRIN800 MG PO; +MS CONTIN,ORAMO15 M1 PO; +ZESTRIL20 MG PO; -ZESTRIL40 MG PO
[2017-09-17 14:45] LABS: HEMATOCRIT 40.2 % (36.0-46.0); HEMOGLOBIN 13.4 G/DL (11.9-15.5); MCH 30.5 PG (29.0-34.0); MCHC 33.3 G/DL (30.0-36.0); MCV 91.6 FL (83-99); PLATELET COUNT 309 K/uL (156-360); RBC DIS.WIDTH-SD 40.3 % (39-53); RED BLOOD COUNT 4.39 M/uL (3.80-5.20); WHITE BLOOD COUNT 15.3 K/uL (4.1-10.2)
[2017-09-17 14:55] LABS: CHLORIDE 103 mEq/L (99-109); POTASSIUM 4.2 mEq/L (3.7-5.4); SODIUM 139 mEq/L (136-147)
[2017-09-17 14:57] LABS: GLUCOSE 139 mg/dL (70-99)
[2017-09-17 15:00] LABS: CREATININE 0.7 mg/dL (0.6-1.3); GFR ESTIMATE (CALCULATED) > 59 mL/min/
[2017-09-17 15:01] LABS: UREA NITROGEN (BUN) 7 mg/dL (9-23)
[2017-09-17 15:07] LABS: TROP-I INTERPRETATION NEGATIVE; TROPONIN-I < 0.01 ng/mL (0.0-0.30)
[2017-09-17 15:39] LABS: ALBUMIN 4.1 g/dL (3.2-4.8)
[2017-09-17 15:41] LABS: TOTAL PROTEIN 7.5 g/dL (6.4-8.3)
[2017-09-17 15:43] LABS: TOTAL BILIRUBIN 0.4 mg/dL (0.0-1.0)
[2017-09-17 15:44] LABS: ALKALINE PHOSPHATASE 96 IU/L (3-129)
[2017-09-17 15:45] LABS: QUANTITATIVE HCG < 4.0 MIU/ML
[2017-09-17 15:47] LABS: ALT (GPT) 84 IU/L (3-49); AST (GOT) 115 IU/L (2-34); DIRECT BILIRUBIN 0.2 mg/dL (0.0-0.3)
[2017-09-17 16:03] LABS: LIPASE 2171 U/L (1.0-51.0)
[2017-09-17] MEDS ORDERED: HALDOL1 MG PO (16:21)
[2017-09-17] MEDS ORDERED: DUONEB 2.5-0.5 M3 ML AEROSOL (16:59)
[2017-09-17] MEDS ORDERED: CAMILA0.35 MG PO (17:00)
[2017-09-17] MEDS ORDERED: VITAMIN D2000 UNI1 PO (17:00)
[2017-09-17 19:57] VITALS: BP 132/75
[2017-09-18 00:15] VITALS: BP 106/51
[2017-09-18 03:49] VITALS: BP 111/19
[2017-09-18 06:26] LABS: HEMOGLOBIN 11.8 G/DL (11.9-15.5); MCH 29.9 PG (29.0-34.0); MCHC 31.9 G/DL (30.0-36.0); MCV 93.9 FL (83-99); PLATELET COUNT 267 K/uL (156-360); RBC DIS.WIDTH-CV 12.3 % (11.8-14.6); RED BLOOD COUNT 3.94 M/uL (3.80-5.20); WHITE BLOOD COUNT 7.9 K/uL (4.1-10.2)
[2017-09-18 06:37] LABS: TROP-I INTERPRETATION NEGATIVE; TROPONIN-I < 0.01 ng/mL (0.0-0.30)
[2017-09-18 06:40] LABS: ALBUMIN 3.5 G/DL (3.2-4.8); ALKALINE PHOSPHATASE 70 IU/L (3-129); ALT (GPT) 53 IU/L (3-49); AST (GOT) 59 IU/L (2-34); CHLORIDE 103 MEQ/L (99-109); CREATININE 0.5 MG/DL (0.6-1.3); GFR ESTIMATE (CALCULATED) > 59 mL/min/; GLUCOSE 123 mg/dL (70-99); HDL CHOLESTEROL 22 MG/DL (Desirable>=50); LDL CHOLESTEROL 116 mg/dL (Desirable<100); LIPASE 40 U/L (1.0-51.0); NON-HDL CHOLESTEROL 162 mg/dL (Desirable<160); POTASSIUM 4.1 MEQ/L (3.7-5.4); SODIUM 138 MEQ/L (136-147); TOTAL BILIRUBIN 0.5 MG/DL (0.0-1.0); TOTAL CHOLESTEROL 184 mg/dL (Desirable<200); TOTAL PROTEIN 6.1 G/DL (6.4-8.3); TRIGLYCERIDES 231 MG/DL (Normal: <150); UREA NITROGEN (BUN) 6 mg/dL (9-23)
[2017-09-18 06:50] VITALS: BP 123/63
[2017-09-18 09:36] LABS: HEMOGLOBIN A1c (GLYCOHEMOGLOB) 7.6 % (Below 5.7)
[2017-09-18 11:11] VITALS: BP 121/67
[2017-09-18 15:41] VITALS: BP 141/61
[2017-09-19 00:50] VITALS: BP 127/62
[2017-09-19 05:40] LABS: BASOPHIL (%) 0.4 % (0-1); EOSINOPHIL (%) 3.4 % (0-5); EOSINOPHIL COUNT 0.2 K/uL (0-0.3); HEMATOCRIT 36.4 % (36.0-46.0); HEMOGLOBIN 11.8 G/DL (11.9-15.5); IMMATURE GRANULOCYTE (%) 0.4 % (0.0-0.7); LYMPHOCYTE (%) 25.1 % (15-42); LYMPHOCYTE COUNT 1.8 K/uL (1.0-2.8); MCHC 32.4 G/DL (30.0-36.0); MCV 92.6 FL (83-99); MONOCYTE COUNT 0.5 K/uL (0-0.8); NEUTROPHIL (%) 63.7 % (45-76); NEUTROPHIL COUNT 4.6 K/uL (1.8-6.4); PLATELET COUNT 246 K/uL (156-360); RBC DIS.WIDTH-CV 12.2 % (11.8-14.6); RBC DIS.WIDTH-SD 41.5 % (39-53); RED BLOOD COUNT 3.93 M/uL (3.80-5.20); WHITE BLOOD COUNT 7.2 K/uL (4.1-10.2)
[2017-09-19 06:15] LABS: ALBUMIN 3.7 G/DL (3.2-4.8); ALKALINE PHOSPHATASE 78 IU/L (3-129); ALT (GPT) 51 IU/L (3-49); AST (GOT) 53 IU/L (2-34); CHLORIDE 102 MEQ/L (99-109); CREATININE 0.6 MG/DL (0.6-1.3); GFR ESTIMATE (CALCULATED) > 59 mL/min/; GLUCOSE 143 mg/dL (70-99); LIPASE 8 U/L (1.0-51.0); SODIUM 139 MEQ/L (136-147); TOTAL PROTEIN 6.5 G/DL (6.4-8.3); UREA NITROGEN (BUN) 5 mg/dL (9-23)
[2017-09-19 06:17] LABS: TOTAL BILIRUBIN 0.3 MG/DL (0.0-1.0)
[2017-09-19 07:00] VITALS: BP 119/63
[2017-09-19 11:45] VITALS: BP 133/63
== END 2017-09-19 13:13 | disposition home or self-care (01) | DRG 439 ==
LOC: EME 13:57 → EDOF 17:08 → ENRESERV 17:11 → 5EAST 19:45
PROVIDERS: Family Medicine
DX: K85.90 Acute pancreatitis without necrosis or infection, unspecified (principal); K86.1 Other chronic pancreatitis; K86.81 Exocrine pancreatic insufficiency; K75.81 Nonalcoholic steatohepatitis (NASH); K74.69 Other cirrhosis of liver; I11.9 Hypertensive heart disease without heart failure; E66.01 Morbid (severe) obesity due to excess calories; Z68.42 Body mass index [BMI] 45.0-49.9, adult; E11.9 Type 2 diabetes mellitus without complications; E28.2 Polycystic ovarian syndrome; N93.9 Abnormal uterine and vaginal bleeding, unspecified; E78.1 Pure hyperglyceridemia; E78.5 Hyperlipidemia, unspecified; J45.909 Unspecified asthma, uncomplicated; F25.0 Schizoaffective disorder, bipolar type; F10.11 Alcohol abuse, in remission; Z98.890 Other specified postprocedural states; Z86.73 Personal history of transient ischemic attack (TIA), and cerebral infarction without residual deficits; Z87.891 Personal history of nicotine dependence; Z90.49 Acquired absence of other specified parts of digestive tract; Z79.4 Long term (current) use of insulin; Z79.818 Long term (current) use of other agents affecting estrogen receptors and estrogen levels; Z88.0 Allergy status to penicillin; Z88.5 Allergy status to narcotic agent; Z82.49 Family history of ischemic heart disease and other diseases of the circulatory system; Z83.3 Family history of diabetes mellitus
CPT/HCPCS: 71046; 74177; 80048; 80053; 80061; 80076; 82948; 83036; 83690; 84484; 84702; 85025; 85027; 93005; 99281; 99285; J1650; J1815; J2270; J2405; J3010; J7030

== ENCOUNTER 2017-10-08 21:30 | Emergency (ER) | payer OTHER ==
[~2017-10-08] VITALS: Ht 154.9 cm; Wt 111.6 kg
[~2017-10-08 21:30] MED LIST changes: +CAMILA0.35 MG PO; +HALDOL1 MG PO; +VITAMIN D2000 UNI1 PO
[2017-10-08 21:51] LABS: HEMATOCRIT 36.8 % (36.0-46.0); HEMOGLOBIN 12.5 G/DL (11.9-15.5); MCH 30.5 PG (29.0-34.0); MCV 89.8 FL (83-99); PLATELET COUNT 240 K/uL (156-360); RBC DIS.WIDTH-CV 11.9 % (11.8-14.6); RBC DIS.WIDTH-SD 39.1 % (39-53); WHITE BLOOD COUNT 9.3 K/uL (4.1-10.2)
[2017-10-08 22:00] LABS: CHLORIDE 99 mEq/L (99-109); POTASSIUM 3.6 mEq/L (3.7-5.4); SODIUM 135 mEq/L (136-147)
[2017-10-08 22:05] LABS: CREATININE 0.8 mg/dL (0.6-1.3); GFR ESTIMATE (CALCULATED) > 59 mL/min/
[2017-10-08 22:06] LABS: GLUCOSE 451 mg/dL (70-99); UREA NITROGEN (BUN) 6 mg/dL (9-23)
[2017-10-08 22:13] LABS: TROP-I INTERPRETATION NEGATIVE; TROPONIN-I < 0.01 ng/mL (0.0-0.30)
[2017-10-08 22:52] LABS: CARBON DIOXIDE (BICARBONATE) 25.4 MEQ/L (20-31)
[2017-10-09 01:16] LABS: ALBUMIN 4.1 g/dL (3.2-4.8); AMYLASE 15 IU/L (1-118); TOTAL PROTEIN 7.7 g/dL (6.4-8.3)
[2017-10-09 01:17] LABS: TOTAL BILIRUBIN 0.2 mg/dL (0.0-1.0)
[2017-10-09 01:18] LABS: TROP-I INTERPRETATION NEGATIVE; TROPONIN-I < 0.01 ng/mL (0.0-0.30)
[2017-10-09 01:18] LABS: ALKALINE PHOSPHATASE 143 IU/L (3-129)
[2017-10-09 01:21] LABS: AST (GOT) 109 IU/L (2-34); DIRECT BILIRUBIN 0.1 mg/dL (0.0-0.3)
[2017-10-09 01:22] LABS: ALT (GPT) 81 IU/L (3-49); LIPASE 14 U/L (1.0-51.0)
[2017-10-09 01:48] LABS: APPEARANCE CLEAR ((CLEAR)); BILIRUBIN NEGATIVE; BLOOD LARGE; COLOR YELLOW ((YELLOW)); GLUCOSE (STRIP) >=500; KETONES NEGATIVE; LEUKOCYTES NEGATIVE; NITRITE NEGATIVE; PROTEIN (STRIP) NEGATIVE; SPECIFIC GRAVITY 1.017 (1.000-1.030); UROBILINOGEN 0.2 MG/DL (0.2-1.0)
[2017-10-09 01:50] LABS: BACTERIA NONE SEEN /HPF; EPITHELIAL CELLS RARE /HPF; MUCUS NONE SEEN /LPF; RED BLOOD CELLS 0-5 /HPF (0-5); UCUL ADDED? NO; WHITE BLOOD CELLS 0-5 /HPF (0-5)
[2017-10-09 03:03] LABS: CHLORIDE 102 mEq/L (99-109); POTASSIUM 3.3 mEq/L (3.7-5.4); SODIUM 137 mEq/L (136-147)
[2017-10-09 03:04] LABS: GLUCOSE 303 mg/dL (70-99)
[2017-10-09 03:08] LABS: CREATININE 0.6 mg/dL (0.6-1.3); GFR ESTIMATE (CALCULATED) > 59 mL/min/
[2017-10-09 03:09] LABS: UREA NITROGEN (BUN) 5 mg/dL (9-23)
[2017-10-09 03:34] LABS: CHLORIDE 103 mEq/L (99-109); POTASSIUM 3.6 mEq/L (3.7-5.4); SODIUM 139 mEq/L (136-147)
[2017-10-09 03:36] LABS: GLUCOSE 259 mg/dL (70-99)
[2017-10-09 03:40] LABS: CREATININE 0.7 mg/dL (0.6-1.3); GFR ESTIMATE (CALCULATED) > 59 mL/min/
[2017-10-09 03:41] LABS: UREA NITROGEN (BUN) 5 mg/dL (9-23)
[2017-10-09 04:15] VITALS: BP 180/85
== END 2017-10-09 04:15 | disposition home or self-care (01) ==
LOC: EXP 21:30 → EME 21:30 → EXP 10-09 04:15
PROVIDERS: Physician Assistant
DX: E11.65 Type 2 diabetes mellitus with hyperglycemia (principal); R07.9 Chest pain, unspecified; I10 Essential (primary) hypertension; Z79.84 Long term (current) use of oral hypoglycemic drugs; F32.9 Major depressive disorder, single episode, unspecified; G47.30 Sleep apnea, unspecified; E28.2 Polycystic ovarian syndrome; Z88.0 Allergy status to penicillin; Z88.5 Allergy status to narcotic agent; Z87.891 Personal history of nicotine dependence
CPT/HCPCS: 71046; 80048; 80048 91; 80076; 81003; 82010; 82150; 82803; 82948; 83690; 84484; 85027; 85379; 93005; 99281; 99285; J1885; J2405; J7030

== ENCOUNTER 2017-10-29 18:08 | Emergency (ER) | payer OTHER ==
[~2017-10-29] VITALS: Ht 154.9 cm; Wt 108.7 kg
[2017-10-29 20:05] LABS: APPEARANCE CLEAR ((CLEAR)); BILIRUBIN NEGATIVE; BLOOD SMALL; COLOR STRAW ((YELLOW)); GLUCOSE (STRIP) >=500; KETONES NEGATIVE; LEUKOCYTES NEGATIVE; NITRITE NEGATIVE; PROTEIN (STRIP) NEGATIVE; SPECIFIC GRAVITY 1.021 (1.000-1.030); UROBILINOGEN 0.2 MG/DL (0.2-1.0)
[2017-10-29 20:11] LABS: BACTERIA NONE SEEN /HPF; EPITHELIAL CELLS RARE /HPF; MUCUS TRACE /LPF; RED BLOOD CELLS 0-5 /HPF (0-5); WHITE BLOOD CELLS 0-5 /HPF (0-5)
[2017-10-29 22:23] VITALS: BP 171/105
== END 2017-10-29 22:23 | disposition home or self-care (01) ==
LOC: EME 18:08
PROVIDERS: Physician Assistant
DX: I10 Essential (primary) hypertension (principal); R51 Headache; E66.01 Morbid (severe) obesity due to excess calories; Z68.42 Body mass index [BMI] 45.0-49.9, adult; E11.9 Type 2 diabetes mellitus without complications; Z79.4 Long term (current) use of insulin; Z87.891 Personal history of nicotine dependence
CPT/HCPCS: 81003; 99281; 99284

== ENCOUNTER 2017-11-03 22:16 | Emergency (ER) | payer OTHER ==
[~2017-11-03] VITALS: Ht 154.9 cm; Wt 109.0 kg
[2017-11-03 22:42] LABS: APPEARANCE CLEAR ((CLEAR)); BILIRUBIN NEGATIVE; BLOOD MODERATE; COLOR STRAW ((YELLOW)); GLUCOSE (STRIP) >=500; KETONES NEGATIVE; LEUKOCYTES TRACE; NITRITE NEGATIVE; PROTEIN (STRIP) NEGATIVE; UROBILINOGEN 0.2 MG/DL (0.2-1.0)
[2017-11-03 22:44] LABS: BACTERIA NONE SEEN /HPF; EPITHELIAL CELLS RARE /HPF; MUCUS NONE SEEN /LPF; RED BLOOD CELLS 0-5 /HPF (0-5); WHITE BLOOD CELLS 0-5 /HPF (0-5)
[2017-11-03 23:39] LABS: HEMATOCRIT 38.9 % (36.0-46.0); HEMOGLOBIN 12.8 G/DL (11.9-15.5); MCH 29.1 PG (29.0-34.0); MCHC 32.9 G/DL (30.0-36.0); MCV 88.4 FL (83-99); PLATELET COUNT 260 K/uL (156-360); RBC DIS.WIDTH-SD 38.6 % (39-53); WHITE BLOOD COUNT 9.6 K/uL (4.1-10.2)
[2017-11-03 23:47] LABS: CHLORIDE 104 mEq/L (99-109); POTASSIUM 3.9 mEq/L (3.7-5.4); SODIUM 139 mEq/L (136-147)
[2017-11-03 23:49] LABS: GLUCOSE 245 mg/dL (70-99)
[2017-11-03 23:50] LABS: TOTAL PROTEIN 7.4 g/dL (6.4-8.3)
[2017-11-03 23:51] LABS: TOTAL BILIRUBIN 0.3 mg/dL (0.0-1.0)
[2017-11-03 23:53] LABS: ALKALINE PHOSPHATASE 114 IU/L (3-129); CREATININE 0.8 mg/dL (0.6-1.3); GFR ESTIMATE (CALCULATED) > 59 mL/min/
[2017-11-03 23:54] LABS: UREA NITROGEN (BUN) 5 mg/dL (9-23)
[2017-11-03 23:55] LABS: AST (GOT) 111 IU/L (2-34); DIRECT BILIRUBIN 0.1 mg/dL (0.0-0.3)
[2017-11-03 23:56] LABS: ALT (GPT) 77 IU/L (3-49)
[2017-11-03 23:57] LABS: LIPASE 21 U/L (1.0-51.0)
[2017-11-04 00:03] LABS: QUANTITATIVE HCG < 4.0 MIU/ML
[2017-11-04 00:58] VITALS: BP 190/100
== END 2017-11-04 00:59 | disposition home or self-care (01) ==
LOC: EXP 22:16 → EME 22:16 → EXP 11-04 00:59
PROVIDERS: Physician Assistant
DX: R10.32 Left lower quadrant pain (principal); R03.0 Elevated blood-pressure reading, without diagnosis of hypertension; E11.65 Type 2 diabetes mellitus with hyperglycemia; Z79.84 Long term (current) use of oral hypoglycemic drugs; Z97.5 Presence of (intrauterine) contraceptive device; K76.0 Fatty (change of) liver, not elsewhere classified; I51.7 Cardiomegaly; E28.2 Polycystic ovarian syndrome; G47.30 Sleep apnea, unspecified; G43.909 Migraine, unspecified, not intractable, without status migrainosus; F45.9 Somatoform disorder, unspecified; F32.9 Major depressive disorder, single episode, unspecified; Z87.891 Personal history of nicotine dependence; Z87.19 Personal history of other diseases of the digestive system; Z90.49 Acquired absence of other specified parts of digestive tract; Z88.0 Allergy status to penicillin; Z88.5 Allergy status to narcotic agent; Z88.8 Allergy status to other drugs, medicaments and biological substances
CPT/HCPCS: 76856; 80048; 80076; 81003; 83690; 84702; 85027; 93975; 99281; 99284; J1885

== ENCOUNTER 2017-11-28 19:00 | Emergency (ER) | payer OTHER ==
[~2017-11-28] VITALS: Ht 154.9 cm; Wt 105.7 kg
[2017-11-28 19:49] LABS: HEMATOCRIT 43.1 % (36.0-46.0); HEMOGLOBIN 14.2 G/DL (11.9-15.5); MCH 28.9 PG (29.0-34.0); MCHC 32.9 G/DL (30.0-36.0); MCV 87.6 FL (83-99); PLATELET COUNT 299 K/uL (156-360); RBC DIS.WIDTH-CV 12.7 % (11.8-14.6); RBC DIS.WIDTH-SD 40.3 % (39-53); RED BLOOD COUNT 4.92 M/uL (3.80-5.20); WHITE BLOOD COUNT 11.6 K/uL (4.1-10.2)
[2017-11-28 19:59] LABS: ALBUMIN 4.3 g/dL (3.2-4.8); CHLORIDE 98 mEq/L (99-109); POTASSIUM 4.7 mEq/L (3.7-5.4); SODIUM 136 mEq/L (136-147)
[2017-11-28 20:02] LABS: GLUCOSE 261 mg/dL (70-99); TOTAL PROTEIN 7.9 g/dL (6.4-8.3)
[2017-11-28 20:04] LABS: TOTAL BILIRUBIN 0.5 mg/dL (0.0-1.0)
[2017-11-28 20:05] LABS: ALKALINE PHOSPHATASE 107 IU/L (3-129); CREATININE 0.9 mg/dL (0.6-1.3); GFR ESTIMATE (CALCULATED) > 59 mL/min/
[2017-11-28 20:06] LABS: UREA NITROGEN (BUN) 7 mg/dL (9-23)
[2017-11-28 20:07] LABS: AST (GOT) 97 IU/L (2-34)
[2017-11-28 20:08] LABS: ALT (GPT) 97 IU/L (3-49)
[2017-11-28 20:09] LABS: LIPASE 10 U/L (1.0-51.0)
[2017-11-28 20:11] LABS: TROP-I INTERPRETATION NEGATIVE; TROPONIN-I < 0.01 ng/mL (0.0-0.30)
[2017-11-28 23:14] LABS: TROP-I INTERPRETATION NEGATIVE; TROPONIN-I < 0.01 ng/mL (0.0-0.30)
[2017-11-28 23:27] VITALS: BP 127/70
== END 2017-11-28 23:24 | disposition home or self-care (01) ==
LOC: EME 19:00
PROVIDERS: Nurse Practitioner Family
DX: R10.13 Epigastric pain (principal); R07.9 Chest pain, unspecified; R11.0 Nausea; M25.512 Pain in left shoulder; Z87.19 Personal history of other diseases of the digestive system; Z90.49 Acquired absence of other specified parts of digestive tract; I10 Essential (primary) hypertension; J45.909 Unspecified asthma, uncomplicated; E11.9 Type 2 diabetes mellitus without complications; Z79.4 Long term (current) use of insulin; Z79.891 Long term (current) use of opiate analgesic; Z87.891 Personal history of nicotine dependence
CPT/HCPCS: 71046; 80053; 83690; 84484; 85027; 93005; 99281; 99284; J1885

== ENCOUNTER 2017-12-03 13:50 | Emergency (ER) | payer OTHER ==
[~2017-12-03] VITALS: Ht 154.9 cm; Wt 105.2 kg
[2017-12-03 15:26] LABS: HEMATOCRIT 40.3 % (36.0-46.0); HEMOGLOBIN 13.5 G/DL (11.9-15.5); MCH 29.5 PG (29.0-34.0); MCHC 33.5 G/DL (30.0-36.0); PLATELET COUNT 301 K/uL (156-360); RBC DIS.WIDTH-CV 12.8 % (11.8-14.6); RBC DIS.WIDTH-SD 41.4 % (39-53); RED BLOOD COUNT 4.58 M/uL (3.80-5.20)
[2017-12-03 15:45] LABS: TROP-I INTERPRETATION NEGATIVE; TROPONIN-I < 0.01 ng/mL (0.0-0.30)
[2017-12-03 16:03] LABS: CHLORIDE 98 MEQ/L (99-109); POTASSIUM 4.3 MEQ/L (3.7-5.4); SODIUM 134 MEQ/L (136-147)
[2017-12-03 16:08] LABS: CREATININE 0.7 MG/DL (0.6-1.3); GFR ESTIMATE (CALCULATED) > 59 mL/min/; GLUCOSE 255 mg/dL (70-99); UREA NITROGEN (BUN) 14 mg/dL (9-23)
[2017-12-03 18:25] VITALS: BP 105/58
== END 2017-12-03 18:42 | disposition home or self-care (01) ==
LOC: EME 13:50
DX: R07.89 Other chest pain (principal); E86.0 Dehydration; I10 Essential (primary) hypertension; G47.30 Sleep apnea, unspecified; F32.9 Major depressive disorder, single episode, unspecified; Z87.891 Personal history of nicotine dependence; Z90.49 Acquired absence of other specified parts of digestive tract; Z88.0 Allergy status to penicillin; Z88.5 Allergy status to narcotic agent
CPT/HCPCS: 71046; 80048; 84484; 85027; 93005; J7030

== ENCOUNTER 2017-12-10 19:53 | Inpatient (IN) | payer OTHER ==
[~2017-12-10] VITALS: Ht 154.9 cm; Wt 110.0 kg
[~2017-12-10 19:53] MED LIST changes: +ERGOCALCIF50000 UNIT PO; -VITAMIN D2000 UNI1 PO
[2017-12-10 20:25] LABS: BASOPHIL (%) 0.4 % (0-1); BASOPHIL COUNT 0.1 K/uL (0-0.1); EOSINOPHIL (%) 4.5 % (0-5); EOSINOPHIL COUNT 0.6 K/uL (0-0.3); HEMATOCRIT 42.2 % (36.0-46.0); HEMOGLOBIN 14.1 G/DL (11.9-15.5); IMMATURE GRANULOCYTE (%) 0.9 % (0.0-0.7); LYMPHOCYTE (%) 18.2 % (15-42); LYMPHOCYTE COUNT 2.6 K/uL (1.0-2.8); MCH 29.5 PG (29.0-34.0); MCHC 33.4 G/DL (30.0-36.0); MCV 88.3 FL (83-99); MONOCYTE (%) 3.9 % (3-12); MONOCYTE COUNT 0.5 K/uL (0-0.8); NEUTROPHIL (%) 72.1 % (45-76); NEUTROPHIL COUNT 10.1 K/uL (1.8-6.4); PLATELET COUNT 352 K/uL (156-360); RBC DIS.WIDTH-SD 42.1 % (39-53); RED BLOOD COUNT 4.78 M/uL (3.80-5.20)
[2017-12-10 20:37] LABS: ALBUMIN 4.3 g/dL (3.2-4.8); CHLORIDE 100 mEq/L (99-109); POTASSIUM 4.5 mEq/L (3.7-5.4); SODIUM 134 mEq/L (136-147)
[2017-12-10 20:38] LABS: APPEARANCE CLEAR ((CLEAR)); BILIRUBIN NEGATIVE; BLOOD MODERATE; COLOR YELLOW ((YELLOW)); GLUCOSE (STRIP) >=500; KETONES NEGATIVE; LEUKOCYTES NEGATIVE; NITRITE NEGATIVE; PROTEIN (STRIP) NEGATIVE; UROBILINOGEN 0.2 MG/DL (0.2-1.0)
[2017-12-10 20:39] LABS: GLUCOSE 169 mg/dL (70-99)
[2017-12-10 20:41] LABS: TOTAL BILIRUBIN 0.6 mg/dL (0.0-1.0)
[2017-12-10 20:42] LABS: BACTERIA RARE /HPF; EPITHELIAL CELLS RARE /HPF; MUCUS NONE SEEN /LPF; RED BLOOD CELLS 0-5 /HPF (0-5); WHITE BLOOD CELLS 0-5 /HPF (0-5)
[2017-12-10 20:43] LABS: ALKALINE PHOSPHATASE 100 IU/L (3-129); CREATININE 0.8 mg/dL (0.6-1.3); GFR ESTIMATE (CALCULATED) > 59 mL/min/
[2017-12-10 20:44] LABS: UREA NITROGEN (BUN) 11 mg/dL (9-23)
[2017-12-10 20:45] LABS: AST (GOT) 124 IU/L (2-34); DIRECT BILIRUBIN 0.2 mg/dL (0.0-0.3)
[2017-12-10 20:46] LABS: ALT (GPT) 100 IU/L (3-49); LIPASE 384 U/L (1.0-51.0)
[2017-12-10 20:52] LABS: QUANTITATIVE HCG < 4.0 MIU/ML
[2017-12-10] MEDS ORDERED: NAPROXEN500 MG PO (21:23)
[2017-12-10 21:29] LABS: CREATINE KINASE 72 IU/L (1-294)
[2017-12-10] MEDS ORDERED: SINGULAIR10 MG PO (21:35)
[2017-12-10] MEDS ORDERED: INVOKANA100 MG PO (21:36)
[2017-12-10] MEDS ORDERED: LISINOPRIL40 MG PO (21:37)
[2017-12-10] MEDS ORDERED: NORVASC10 MG PO (21:37)
[2017-12-10] MEDS ORDERED: CRESTOR5 MG PO (21:38)
[2017-12-10] MEDS ORDERED: NYSTATIN15 GM TP (21:39)
[2017-12-10] MEDS ORDERED: CHLORTHALIDONE25 MG PO (21:39)
[2017-12-11 01:09] VITALS: BP 112/53
[2017-12-11 01:21] LABS: TRIGLYCERIDES 164 MG/DL (Normal: <150)
[2017-12-11 06:31] LABS: ALBUMIN 3.5 G/DL (3.2-4.8); ALKALINE PHOSPHATASE 79 IU/L (3-129); ALT (GPT) 58 IU/L (3-49); AST (GOT) 66 IU/L (2-34); CHLORIDE 103 MEQ/L (99-109); CREATININE 0.6 MG/DL (0.6-1.3); GFR ESTIMATE (CALCULATED) > 59 mL/min/; POTASSIUM 4.3 MEQ/L (3.7-5.4); SODIUM 136 MEQ/L (136-147); TOTAL BILIRUBIN 0.5 MG/DL (0.0-1.0); UREA NITROGEN (BUN) 11 mg/dL (9-23)
[2017-12-11 06:38] LABS: GLUCOSE 112 mg/dL (70-99)
[2017-12-11 07:07] LABS: BASOPHIL (%) 0.5 % (0-1); BASOPHIL COUNT 0.1 K/uL (0-0.1); EOSINOPHIL (%) 5.9 % (0-5); EOSINOPHIL COUNT 0.6 K/uL (0-0.3); HEMATOCRIT 37.1 % (36.0-46.0); IMMATURE GRANULOCYTE (%) 0.7 % (0.0-0.7); LYMPHOCYTE (%) 32.9 % (15-42); LYMPHOCYTE COUNT 3.5 K/uL (1.0-2.8); MCH 29.1 PG (29.0-34.0); MCHC 32.3 G/DL (30.0-36.0); MCV 89.8 FL (83-99); MONOCYTE COUNT 0.5 K/uL (0-0.8); NEUTROPHIL COUNT 5.9 K/uL (1.8-6.4); PLATELET COUNT 269 K/uL (156-360); RBC DIS.WIDTH-CV 13.2 % (11.8-14.6); RBC DIS.WIDTH-SD 43.6 % (39-53); RED BLOOD COUNT 4.13 M/uL (3.80-5.20); WHITE BLOOD COUNT 10.7 K/uL (4.1-10.2)
[2017-12-11 08:31] LABS: HDL CHOLESTEROL 22 MG/DL (Desirable>=50); LDL CHOLESTEROL 143 mg/dL (Desirable<100); LIPASE 122 U/L (1.0-51.0); NON-HDL CHOLESTEROL 173 mg/dL (Desirable<160); TOTAL CHOLESTEROL 195 mg/dL (Desirable<200); TRIGLYCERIDES 149 MG/DL (Normal: <150)
[2017-12-11 08:36] VITALS: BP 104/51
[2017-12-11 11:32] VITALS: BP 109/58
[2017-12-11 16:13] VITALS: BP 115/51
[2017-12-11 23:55] VITALS: BP 98/45
[2017-12-12 06:27] LABS: BASOPHIL (%) 0.7 % (0-1); BASOPHIL COUNT 0.1 K/uL (0-0.1); EOSINOPHIL (%) 6.1 % (0-5); EOSINOPHIL COUNT 0.6 K/uL (0-0.3); HEMATOCRIT 39.6 % (36.0-46.0); HEMOGLOBIN 12.9 G/DL (11.9-15.5); IMMATURE GRANULOCYTE (%) 0.9 % (0.0-0.7); LYMPHOCYTE (%) 18.9 % (15-42); MCHC 32.6 G/DL (30.0-36.0); MONOCYTE (%) 6.5 % (3-12); MONOCYTE COUNT 0.7 K/uL (0-0.8); NEUTROPHIL (%) 66.9 % (45-76); NEUTROPHIL COUNT 6.9 K/uL (1.8-6.4); PLATELET COUNT 266 K/uL (156-360); RBC DIS.WIDTH-CV 12.9 % (11.8-14.6); RBC DIS.WIDTH-SD 42.4 % (39-53); RED BLOOD COUNT 4.45 M/uL (3.80-5.20); WHITE BLOOD COUNT 10.3 K/uL (4.1-10.2)
[2017-12-12 06:48] LABS: AMYLASE 12 IU/L (1-118); CHLORIDE 98 MEQ/L (99-109); CREATININE 0.5 MG/DL (0.6-1.3); GFR ESTIMATE (CALCULATED) > 59 mL/min/; GLUCOSE 159 mg/dL (70-99); LIPASE 45 U/L (1.0-51.0); POTASSIUM 4.4 MEQ/L (3.7-5.4); SODIUM 135 MEQ/L (136-147); UREA NITROGEN (BUN) 6 mg/dL (9-23)
[2017-12-12 07:24] LABS: C-REACTIVE PROTEIN 17.4 MG/L (0-10)
[2017-12-12 08:14] VITALS: BP 129/67
[2017-12-12] MEDS ORDERED: HUMULIN R500 UNITS/ SC (08:28)
[2017-12-12 11:40] VITALS: BP 124/68
[2017-12-12 15:32] VITALS: BP 136/71
== END 2017-12-12 15:56 | disposition home or self-care (01) | DRG 439 ==
LOC: EME 19:53 → EDOF 22:37 → ENRESERV 22:46 → 3EAST 12-11 00:24
PROVIDERS: Hospitalist; Internal Medicine; Physician Assistant
DX: K85.80 Other acute pancreatitis without necrosis or infection (principal); Z68.42 Body mass index [BMI] 45.0-49.9, adult; K75.81 Nonalcoholic steatohepatitis (NASH); K86.1 Other chronic pancreatitis; E11.65 Type 2 diabetes mellitus with hyperglycemia; E66.01 Morbid (severe) obesity due to excess calories; J45.909 Unspecified asthma, uncomplicated; F25.9 Schizoaffective disorder, unspecified; F31.9 Bipolar disorder, unspecified; E28.2 Polycystic ovarian syndrome; Z90.49 Acquired absence of other specified parts of digestive tract; I51.7 Cardiomegaly; I10 Essential (primary) hypertension
CPT/HCPCS: 74176; 74181; 80048; 80053; 80061; 80076; 81003; 82150; 82550; 82787 90; 82948; 83690; 84478; 84702; 85025; 86140; 94640; 94799; 99281; 99284; C9113; J1200; J1630; J1885; J2270; J2405; J2765; J3010; J7030; J7120

== ENCOUNTER 2017-12-26 19:58 | Emergency (ER) | payer OTHER ==
[~2017-12-26] VITALS: Ht 154.9 cm; Wt 104.8 kg
[~2017-12-26 19:58] MED LIST changes: +CRESTOR5 MG PO; +INVOKANA100 MG PO; +NAPROXEN500 MG PO; +NYSTATIN15 GM TP
[2017-12-26 20:29] LABS: APPEARANCE CLEAR ((CLEAR)); BILIRUBIN NEGATIVE; BLOOD NEGATIVE; COLOR STRAW ((YELLOW)); GLUCOSE (STRIP) >=500; KETONES NEGATIVE; LEUKOCYTES NEGATIVE; NITRITE NEGATIVE; PROTEIN (STRIP) NEGATIVE; SPECIFIC GRAVITY 1.012 (1.000-1.030); UCUL ADDED? NO; UROBILINOGEN 0.2 MG/DL (0.2-1.0)
[2017-12-26 20:50] LABS: HEMOGLOBIN 12.5 G/DL (11.9-15.5); MCH 29.2 PG (29.0-34.0); MCHC 32.9 G/DL (30.0-36.0); MCV 88.8 FL (83-99); PLATELET COUNT 286 K/uL (156-360); RBC DIS.WIDTH-CV 13.2 % (11.8-14.6); RED BLOOD COUNT 4.28 M/uL (3.80-5.20); WHITE BLOOD COUNT 11.9 K/uL (4.1-10.2)
[2017-12-26 21:03] LABS: CHLORIDE 105 mEq/L (99-109); POTASSIUM 4.6 mEq/L (3.7-5.4); SODIUM 139 mEq/L (136-147)
[2017-12-26 21:05] LABS: GLUCOSE 208 mg/dL (70-99); TOTAL PROTEIN 7.5 g/dL (6.4-8.3)
[2017-12-26 21:07] LABS: TOTAL BILIRUBIN 0.4 mg/dL (0.0-1.0)
[2017-12-26 21:08] LABS: ALKALINE PHOSPHATASE 100 IU/L (3-129)
[2017-12-26 21:09] LABS: CREATININE 0.7 mg/dL (0.6-1.3); GFR ESTIMATE (CALCULATED) > 59 mL/min/
[2017-12-26 21:10] LABS: AST (GOT) 53 IU/L (2-34); UREA NITROGEN (BUN) 7 mg/dL (9-23)
[2017-12-26 21:11] LABS: ALT (GPT) 59 IU/L (3-49)
[2017-12-26 21:20] LABS: QUANTITATIVE HCG < 4.0 MIU/ML
[2017-12-26 21:50] LABS: LIPASE 23 U/L (1.0-51.0)
[2017-12-26] MEDS ORDERED: ZOFRAN ODT4 MG PO (22:07)
[2017-12-26] MEDS ORDERED: PERCOCET 5/31 TABLET PO (22:08)
[2017-12-26 22:20] VITALS: BP 97/53
== END 2017-12-26 22:26 | disposition home or self-care (01) ==
LOC: EME 19:58
DX: R10.12 Left upper quadrant pain (principal); R19.7 Diarrhea, unspecified; R11.2 Nausea with vomiting, unspecified; K86.1 Other chronic pancreatitis; K58.9 Irritable bowel syndrome, unspecified; F32.9 Major depressive disorder, single episode, unspecified; Z90.49 Acquired absence of other specified parts of digestive tract; E28.2 Polycystic ovarian syndrome; Z79.84 Long term (current) use of oral hypoglycemic drugs; Z87.891 Personal history of nicotine dependence; Z88.0 Allergy status to penicillin; Z88.5 Allergy status to narcotic agent
CPT/HCPCS: 80053; 81003; 83690; 84702; 85027; 99281; 99285